=== PATIENT | male | born 1965 | race Hispanic/Latino ===

== ENCOUNTER 2017-11-26 04:33 | Inpatient (IN) | payer MEDICARE, OTHER ==
[2017-11-26] MEDS ORDERED: ACTIDOSE SORBITOL PO ONE (05:00)
[2017-11-26] MEDS ORDERED: NACL 0.9% 1000 ML 1,000 ML IV ONE ×2 (05:00→06:29)
[2017-11-26] MEDS ORDERED: NACL 0.9% 1000 ML 1,000 ML ONE (05:15)
[2017-11-26] MEDS ORDERED: ACTIDOSE-AQUA ONE (05:16)
[2017-11-26 05:50] LABS: Basophils % (Auto) 0.1 % (0.0-1.8); Lymphocytes # (Auto) 0.7 K/mm3 (1.2-5.4); Lymphocytes % (Auto) 4.2 % (13.4-35.0); Mean Corpuscular HGB Conc 36 % (32-34); Mean Corpuscular Hemoglobin 35 pg (28-32); Mean Corpuscular Volume 96 fl (84-94); Monocytes # (Auto) 2.6 K/mm3 (0.0-0.8); Monocytes % (Auto) 15.9 % (0.0-7.3); Platelet Count 344 K/mm3 (140-440); Red Blood Count 4.21 M/mm3 (3.65-5.03); Red Cell Distribution Width 12.5 % (13.2-15.2)
[2017-11-26 05:51] LABS: Bilirubin,Urine NEG (Negative); Blood,Urine SM (Negative); Color,Urine Amber (Yellow); Hyaline Casts,Urine 5 /LPF; Mucus,Urine 1+ /HPF
[2017-11-26 05:56] LABS: Amphetamine Screen,Urine PRESUMPTIVE NEGATIVE; Benzodiazepines Screen,Urine PRESUMPTIVE NEGATIVE; Cannabinoid Screen,Urine PRESUMPTIVE NEGATIVE; Cocaine Screen,Urine PRESUMPTIVE NEGATIVE; Methadone Screen,Urine PRESUMPTIVE NEGATIVE; Opiate Screen,Urine PRESUMPTIVE NEGATIVE
[2017-11-26 06:03] LABS: Hematocrit 40.4 % (35.5-45.6); Hemoglobin 14.5 gm/dl (11.8-15.2)
[2017-11-26] MEDS ORDERED: VITAMIN B-1 100 MG, FOLVITE 1 MG, INFUVITE 10 ML in NACL 0.9% 1000 ML 1,000 ML IV ONE (06:29)
[2017-11-26] MEDS ORDERED: BOOSTRIX IM ONE (06:30)
--- NOTE | 2017-11-26 06:31 | Emergency Department Report ---
ED General Adult HPI - General Chief complaint: Overdose Stated complaint: OVERDOSE Time Seen by Provider: 11/26/17 06:06 Source: EMS (ems notes not available at time of chart dictation), RN notes reviewed, old records reviewed Mode of arrival: Stretcher Limitations: Altered Mental Status, Physical Limitation - History of Present Illness Initial comments: This is a 52-year-old gentleman who is not known to this provider previously. Past medical history includes alcohol abuse, and disorganized behavior. History is primarily obtained by review of nursing notes, discussion with nurse , contact with his reported power of tax attorney, Ms. Champagne; [phone]. The patient apparently ingested an unknown amount of dog and tick flea medication, and may have also taken 2 of his old seizure medications. Purported ingestion is at/around 3:30 AM. The patient is altered and cannot describe exacerbating or relieving factors or tell me why he did this. He cannot tell me if he is homicidal or suicidal. His power of tax attorney thinks that the patient is withdrawing and she reports the patient has poor functional status at baseline. The patient is not able to tell me if he is having pain anywhere. He is unable to tell me exacerbating or relieving factors or qualitative nature of his symptoms. -: This morning Radiation: other Severity scale (0 -10): 0 Quality: other Consistency: other Improves with: other Worsens with: other Associated Symptoms: other - Related Data Home Medications Medication Instructions Recorded Confirmed Last Taken ALBUTEROL Inhaler (OR & NICU) 2 puff INHALATION Q4H PRN 12/23/13 12/23/13 Unknown [ProAir HFA Inhaler] ALPRAZolam [Alprazolam] 0.5 mg PO TID 12/23/13 12/23/13 Unknown Cyclobenzaprine [Flexeril 10 MG 10 mg PO TID 12/23/13 12/23/13 Unknown TAB] Ezogabine [Potiga] 50 mg PO TID 12/23/13 12/23/13 Unknown Lisinopril/Hydrochlorothiazide 1 tab PO DAILY 12/23/13 12/23/13 Unknown [Zestoretic 20-12.5 mg] Allergies Allergy/AdvReac Type Severity Reaction Status Date / Time No Known Allergies Allergy Unverified 12/23/13 20:39 ED Review of Systems ROS: Stated complaint: OVERDOSE Other details as noted in HPI Comment: Unobtainable due to pts medical conditions ED Past Medical Hx - Past Medical History Hx Hypertension: Yes Hx Seizures: Yes - Surgical History Past Surgical History?: No - Social History Smoking Status: Current Every Day Smoker Substance Use Type: None - Medications Home Medications: Home Medications Medication Instructions Recorded Confirmed Last Taken Type ALBUTEROL Inhaler (OR & NICU) 2 puff INHALATION Q4H PRN 12/23/13 12/23/13 Unknown History [ProAir HFA Inhaler] ALPRAZolam [Alprazolam] 0.5 mg PO TID 12/23/13 12/23/13 Unknown History Cyclobenzaprine [Flexeril 10 MG 10 mg PO TID 12/23/13 12/23/13 Unknown History TAB] Ezogabine [Potiga] 50 mg PO TID 12/23/13 12/23/13 Unknown History Lisinopril/Hydrochlorothiazide 1 tab PO DAILY 12/23/13 12/23/13 Unknown History [Zestoretic 20-12.5 mg] ED Physical Exam - General Limitations: Altered Mental Status General appearance: anxious, in distress - Head Head exam: Present: atraumatic, normocephalic - Eye Eye exam: Present: normal appearance, PERRL, EOMI - ENT ENT exam: Present: mucous membranes dry - Neck Neck exam: Present: normal inspection, full ROM. Absent: tenderness, meningismus - Respiratory Respiratory exam: Present: decreased breath sounds. Absent: respiratory distress, wheezes, rales, rhonchi, stridor - Cardiovascular Cardiovascular Exam: Present: tachycardia, normal heart sounds - GI/Abdominal GI/Abdominal exam: Present: soft. Absent: distended, tenderness, guarding, rebound, rigid, pulsatile mass - Extremities Exam Extremities exam: Present: full ROM, normal capillary refill, other (2+ pulses noted in the bilateral upper, lower extremities. Compartments soft. No long bony tenderness. The pelvis is stable.). Absent: normal inspection (there are nontender abrasions to the bilateral anterior knee), tenderness, pedal edema, joint swelling, calf tenderness - Back Exam Back exam: Absent: paraspinal tenderness, vertebral tenderness - Neurological Exam Neurological exam: Present: altered (neurologic examination is limited secondary to patient's inability to cooperate), other (the patient is moving 4 extremities. He is alert to name and location. There is no obvious facial droop. Sensation is intact to light touch.) - Psychiatric Psychiatric exam: Present: anxious - Skin Skin exam: Present: abrasion, ecchymosis ED Course Vital Signs 11/26/17 11/26/17 11/26/17 05:00 05:30 06:09 Temperature 98.8 F Pulse Rate 113 H 108 H 113 H Respiratory 24 20 20 Rate Blood Pressure 173/154 125/90 122/83 [Left] O2 Sat by Pulse 96 98 98 Oximetry - Reevaluation(s) Reevaluation #1: 11/26/17 07:27 Differential diagnosis, including but not limited to: Toxic encephalopathy, metabolic encephalopathy, pneumonia, urinary tract infection, alcohol withdrawal , suicidality, psychosis, overdose Assessment and plan: 52-year-old gentleman with known history of alcohol abuse, who is tachycardic and tremulous without a fever. His leukocytosis is appreciated as well as his tachycardia. Patient has a documented history of being quite disorganized as per his documentation in 2013, and also has a history of alcohol dependence and alcohol withdrawal. Furthermore, his power of tax attorney indicates she thinks the patient is going through alcohol withdrawal. His abnormal vital signs are most likely secondary to alcohol withdrawal. Uncertain whether or not this is a suicidal ingestion or not, and therefore the patient will be placed on a 1013 with suicide precautions. A psychiatric consultation has been requested. ciwa protocol has been ordered. Patient has already been given charcoal prior to my evaluation. Laboratory studies pending, x-ray of the chest was negative, initial EKG nondiagnostic and uninterpretable secondary to motion artifact and wanted to be reinterpreted, no noncontrast CT scan of brain is pending. Reevaluation #2: 11/26/17 07:32 Laboratory studies suggest hyponatremia, most likely secondary to beer consumption, this is probably hypovolemic hyponatremia. Reevaluation #3: 11/26/17 08:08 Elevated lactic acid is appreciated, this is likely secondary to alcohol abuse and probable withdrawal. Also has a myositis. Does not meet definition criteria for rhabdomyolysis at this time. Awaiting CT scan. Patient has received 4 mg of Ativan and is still quite agitated. He will require Haldol for acquisition of CT scan of the brain. Reevaluation #4: 11/26/17 08:38 The patient is still up and agitated, attempting to pull off monitor leads, does not follow verbal commands. He has been given Haldol, Ativan, and is still showing signs of psychomotor agitation. Phenobarbital is ordered. Because of the patient's agitation, there hasn't been a delay in acquisition of CT scan. Reevaluation #5: 11/26/17 09:17 The patient is now sleepy and protecting his airway. Ketamine as canceled. I have requested that the patient go over CT scan emergently. 11/26/17 09:27 Patient now agitated, and we will give ketamine. - Consultations Consultation #1: 11/26/17 10:20 Patient has been given numerous sedating medications, including Haldol, Ativan, ketamine. He is also received phenobarbital. In spite of this, he is still agitated, pulling leads and monitoring equipment off himself, and is clearly a fall risk. Given the patient has failed multiple sedating medications, and has been given multiple classes of medications, it is my opinion that moderate sedation in this context is too dangerous, and therefore the patient is intubated for airway protection for acquisition of appropriate diagnostics. He will be ventilated on the lung protective strategy, with early weaning as possible, and we will contact the critical-care physician transformation architect to arrange placement in to the intensive care unit. Consultation #2: 11/26/17 10:27 Case is discussed with the critical care physician on-call, Dr. Thorne, who will see the patient in consultation Consultation #3: 11/26/17 11:[address] scan of the brain, cervical spine negative for acute disease. Dr. Orlando accepted the patient to the medical service. Patient remains sedated on propofol 11/26/17 11:44 - Intubation Time Out Performed: Yes Sedative: Etomidate Mg Given: 20 Paralytic: Rocuronium Mg Given: 100 Laryngoscope: Georgie Size: 3 Assist Device Used: other (bougie) ET Tube Size: 7.5 Tube Secured Depth (cm): 23 Tube Secured Location: teeth Tube Placement Confirmation: equal breath sounds bilat, no breath sounds over epi, confirmation by capnometr Patient Tolerated Procedure: well Intubation Complications: none Additional Comments: Prior to induction, the patient is placed on a nasal cannula at 15 L/m, and towel rolls are place underneath the shoulder to align the ear to the sternal notch. After this, patient received [id number] ventilation, while receiving induction and paralysis. He does not desaturate, a Montez 3 blade is placed into the patient's oropharynx, and the epiglottis is visualized. The bougie catheters and introduced, and palpable clicks are appreciated, and the endotracheal tube is then advanced over the bougie catheter, with appropriate capnography color change, breath sounds over the chest, no breath sounds in the epigastrium, and tube placement is subsequently confirmed by video laryngoscopy. The patient tolerated the procedure well with no obvious complications. ED Medical Decision Making - Lab Data Result diagrams: 11/26/17 05:37 11/26/17 05:37 Vital Signs 11/26/17 11/26/17 11/26/17 05:00 05:30 06:09 Temperature 98.8 F Pulse Rate 113 H 108 H 113 H Respiratory 24 20 20 Rate Blood Pressure 173/154 125/90 122/83 [Left] O2 Sat by Pulse 96 98 98 Oximetry Lab Results 11/26/17 11/26/17 11/26/17 Range/Units 05:08 05:27 05:27 WBC (4.5-11.0) K/mm3 RBC (3.65-5.03) M/mm3 Hgb (11.8-15.2) gm/dl Hct (35.5-45.6) % MCV (84-94) fl MCH (28-32) pg MCHC (32-34) % RDW (13.2-15.2) % Plt Count (140-440) K/mm3 Lymph % (Auto) (13.4-35.0) % [place] % (Auto) (0.0-7.3) % Eos % (Auto) (0.0-4.3) % Baso % (Auto) (0.0-1.8) % Lymph # (1.2-5.4) K/mm3 [place] # (0.0-0.8) K/mm3 Eos # (0.0-0.4) K/mm3 Baso # (0.0-0.1) K/mm3 Seg Neutrophils % (40.0-70.0) % Seg Neutrophils # (1.8-7.7) K/mm3 POC Glucose 101 (70-105) Magnesium (1.7-2.3) mg/dL Lactate Dehydrogenase (91-180) units/L Troponin T (0.00-0.029) ng/mL Urine Color Rosalia (Yellow) Urine Turbidity Cloudy (Clear) Urine pH 5.0 (5.0-7.0) Ur Specific Spring 1.019 (1.003-1.030) Urine Protein 100 mg/dl (Negative) mg/dL Urine Glucose (UA) Neg (Negative) mg/dL Urine Ketones Tr (Negative) mg/dL Urine Blood Sm (Negative) Urine Nitrite Neg (Negative) Urine Bilirubin Neg (Negative) Urine Urobilinogen 4.0 (<2.0) mg/dL Ur Leukocyte Esterase Neg (Negative) Urine WBC (Auto) 12.0 H (0.0-6.0) /HPF Urine RBC (Auto) 5.0 (0.0-6.0) /HPF U Epithel Cells (Auto) 1.0 (0-13.0) /HPF Hyaline Casts 5 /LPF Urine Mucus 1+ /HPF Salicylates (2.8-20.0) mg/dL Urine Opiates Screen Presumptive negative Urine Methadone Screen Presumptive negative Acetaminophen (10.0-30.0) ug/mL Ur Barbiturates Screen Presumptive negative Ur Phencyclidine Scrn Presumptive negative Ur Amphetamines Screen Presumptive negative U Benzodiazepines Scrn Presumptive negative Urine Cocaine Screen Presumptive negative U Marijuana (THC) Screen Presumptive negative Drugs of Abuse Note Disclamer Plasma/Serum Alcohol (0-0.07) % 11/26/17 11/26/17 11/26/17 Range/Units 05:37 05:37 05:37 WBC (4.5-11.0) K/mm3 RBC (3.65-5.03) M/mm3 Hgb (11.8-15.2) gm/dl Hct (35.5-45.6) % MCV (84-94) fl MCH (28-32) pg MCHC (32-34) % RDW (13.2-15.2) % Plt Count (140-440) K/mm3 Lymph % (Auto) (13.4-35.0) % [place] % (Auto) (0.0-7.3) % Eos % (Auto) (0.0-4.3) % Baso % (Auto) (0.0-1.8) % Lymph # (1.2-5.4) K/mm3 [place] # (0.0-0.8) K/mm3 Eos # (0.0-0.4) K/mm3 Baso # (0.0-0.1) K/mm3 Seg Neutrophils % (40.0-70.0) % Seg Neutrophils # (1.8-7.7) K/mm3 POC Glucose (70-105) Magnesium (1.7-2.3) mg/dL Lactate Dehydrogenase (91-180) units/L Troponin T (0.00-0.029) ng/mL Urine Color (Yellow) Urine Turbidity (Clear) Urine pH (5.0-7.0) Ur Specific [place] (1.003-1.030) Urine Protein (Negative) mg/dL Urine Glucose (UA) (Negative) mg/dL Urine Ketones (Negative) mg/dL Urine Blood (Negative) Urine Nitrite (Negative) Urine Bilirubin (Negative) Urine Urobilinogen (<2.0) mg/dL Ur Leukocyte Esterase (Negative) Urine WBC (Auto) (0.0-6.0) /HPF Urine RBC (Auto) (0.0-6.0) /HPF U Epithel Cells (Auto) (0-13.0) /HPF Hyaline Casts /LPF Urine Mucus /HPF Salicylates < 0.3 L (2.8-20.0) mg/dL Urine Opiates Screen Urine Methadone Screen Acetaminophen < 5.0 L (10.0-30.0) ug/mL Ur Barbiturates Screen Ur Phencyclidine Scrn Ur Amphetamines Screen U Benzodiazepines Scrn Urine Cocaine Screen U Marijuana (THC) Screen Drugs of Abuse Note Plasma/Serum Alcohol < 0.01 (0-0.07) % 11/26/17 11/26/17 11/26/17 Range/Units 05:37 05:37 05:37 WBC 16.1 H (4.5-11.0) K/mm3 RBC 4.21 (3.65-5.03) M/mm3 Hgb 14.5 (11.8-15.2) gm/dl Hct 40.4 (35.5-45.6) % MCV 96 H (84-94) fl MCH 35 H (28-32) pg MCHC 36 H (32-34) % RDW 12.5 L (13.2-15.2) % Plt Count 344 (140-440) K/mm3 Lymph % (Auto) 4.2 L (13.4-35.0) % [place] % (Auto) 15.9 H (0.0-7.3) % Eos % (Auto) 0.0 (0.0-4.3) % Baso % (Auto) 0.1 (0.0-1.8) % Lymph # 0.7 L (1.2-5.4) K/mm3 [place] # 2.6 H (0.0-0.8) K/mm3 Eos # 0.0 (0.0-0.4) K/mm3 Baso # 0.0 (0.0-0.1) K/mm3 Seg Neutrophils % 79.8 H (40.0-70.0) % Seg Neutrophils # 12.8 H (1.8-7.7) K/mm3 POC Glucose (70-105) Magnesium (1.7-2.3) mg/dL Lactate Dehydrogenase 343 H (91-180) units/L Troponin T < 0.010 (0.00-0.029) ng/mL Urine Color (Yellow) Urine Turbidity (Clear) Urine pH (5.0-7.0) Ur Specific [place] (1.003-1.030) Urine Protein (Negative) mg/dL Urine Glucose (UA) (Negative) mg/dL Urine Ketones (Negative) mg/dL Urine Blood (Negative) Urine Nitrite (Negative) Urine Bilirubin (Negative) Urine Urobilinogen (<2.0) mg/dL Ur Leukocyte Esterase (Negative) Urine WBC (Auto) (0.0-6.0) /HPF Urine RBC (Auto) (0.0-6.0) /HPF U Epithel Cells (Auto) (0-13.0) /HPF Hyaline Casts /LPF Urine Mucus /HPF Salicylates (2.8-20.0) mg/dL Urine Opiates Screen Urine Methadone Screen Acetaminophen (10.0-30.0) ug/mL Ur Barbiturates Screen Ur Phencyclidine Scrn Ur Amphetamines Screen U Benzodiazepines Scrn Urine Cocaine Screen U Marijuana (THC) Screen Drugs of Abuse Note Plasma/Serum Alcohol (0-0.07) % 11/26/17 Range/Units 06:44 WBC (4.5-11.0) K/mm3 RBC (3.65-5.03) M/mm3 Hgb (11.8-15.2) gm/dl Hct (35.5-45.6) % MCV (84-94) fl MCH (28-32) pg MCHC (32-34) % RDW (13.2-15.2) % Plt Count (140-440) K/mm3 Lymph % (Auto) (13.4-35.0) % [place] % (Auto) (0.0-7.3) % Eos % (Auto) (0.0-4.3) % Baso % (Auto) (0.0-1.8) % Lymph # (1.2-5.4) K/mm3 [place] # (0.0-0.8) K/mm3 Eos # (0.0-0.4) K/mm3 Baso # (0.0-0.1) K/mm3 Seg Neutrophils % (40.0-70.0) % Seg Neutrophils # (1.8-7.7) K/mm3 POC Glucose (70-105) Magnesium 2.00 (1.7-2.3) mg/dL Lactate Dehydrogenase (91-180) units/L Troponin T (0.00-0.029) ng/mL Urine Color (Yellow) Urine Turbidity (Clear) Urine pH (5.0-7.0) Ur Specific [place] (1.003-1.030) Urine Protein (Negative) mg/dL Urine Glucose (UA) (Negative) mg/dL Urine Ketones (Negative) mg/dL Urine Blood (Negative) Urine Nitrite (Negative) Urine Bilirubin (Negative) Urine Urobilinogen (<2.0) mg/dL Ur Leukocyte Esterase (Negative) Urine WBC (Auto) (0.0-6.0) /HPF Urine RBC (Auto) (0.0-6.0) /HPF U Epithel Cells (Auto) (0-13.0) /HPF Hyaline Casts /LPF Urine Mucus /HPF Salicylates (2.8-20.0) mg/dL Urine Opiates Screen Urine Methadone Screen Acetaminophen (10.0-30.0) ug/mL Ur Barbiturates Screen Ur Phencyclidine Scrn Ur Amphetamines Screen U Benzodiazepines Scrn Urine Cocaine Screen U Marijuana (THC) Screen Drugs of Abuse Note Plasma/Serum Alcohol (0-0.07) % - EKG Data -: EKG Interpreted by Me EKG shows normal: sinus rhythm Rate: normal - EKG Data 11/26/17 07:30 EKG number one is not interpretable. A repeat EKG has been ordered. 11/26/17 11:45 Sinus, 96 bpm, normal axis, motion artifact, atrial enlargement, QTC prolonged, abnormal EKG, not a STEMI - Radiology Data Radiology results: report reviewed, image reviewed X-ray the chest is negative for acute disease Postintubation x-ray demonstrates appropriate placement of endotracheal tube. Critical Care Time: Yes Critical care time in (mins) excluding proc time.: 60 Critical care attestation.: If time is entered above; I have spent that time in minutes in the direct care of this critically ill patient, excluding procedure time. ED Disposition Clinical Impression: ETOH abuse, Overdose Disposition: OP ADMIT IP TO THIS HOSP Is pt being admited?: Yes Condition: Critical Referrals: PRIMARY CARE, [Primary Care Provider] - 3-5 Days
--- NOTE | 2017-11-26 06:53 | XRay Report ---
FINAL REPORT EXAM: XR CHEST 1V AP HISTORY: tachycardia, delirium, questionable aspiration TECHNIQUE: AP portable view(s) of the chest obtained. PRIORS: None. FINDINGS: No mediastinal shift. Cardiac silhouette is not enlarged. Enteric tube terminates in the upper mid abdomen. No pneumothorax, effusion, or focal pulmonary opacity identified. No acute skeletal findings. IMPRESSION: No acute pulmonary finding identified.
[2017-11-26] MEDS ORDERED: ATIVAN IV ONE (07:27)
[2017-11-26 07:30] LABS: Albumin 4.7 g/dL (3.9-5); Calcium 9.4 mg/dL (8.4-10.2)
[2017-11-26] MEDS: ATIVAN IM PRN ×2 (07:50→18:20)
[2017-11-26] MEDS ORDERED: HALDOL IM STA (08:10)
[2017-11-26] MEDS ORDERED: KETALAR IM ONE ×2 (08:56→09:26)
[2017-11-26] MEDS ORDERED: KETAMINE HCL IV ONE (09:39)
[2017-11-26] MEDS ORDERED: AMIDATE IV ONE (10:05)
[2017-11-26] MEDS ORDERED: ZEMURON IV ONE (10:05)
[2017-11-26] MEDS ORDERED: DIPRIVAN 10 MG/ML 1,000 MG/100 ML BOTTLE IV ONE (10:16)
[2017-11-26] MEDS ORDERED: ARTIFICIAL TEARS OPHTH OINT OU PRN (10:18)
[2017-11-26] MEDS ORDERED: VASELINE LIP THERAPY TP PRN (10:18)
[2017-11-26] MEDS: DIPRIVAN 10 MG/ML 1,000 MG/100 ML BOTTLE IV SCH (10:20)
--- NOTE | 2017-11-26 10:38 | XRay Report ---
AP CHEST: HISTORY: Endotracheal tube placement. The endotracheal tube terminates 5.8 cm superior to the edgar. AP view of the chest demonstrates a normal mediastinal and cardiac contour with clear lungs and normal bony and soft tissue structures. IMPRESSION: Unremarkable AP chest. Adequate endotracheal tube placement.
[2017-11-26] MEDS ORDERED: NACL 0.9% 500 ML IV SCH (11:00)
--- NOTE | 2017-11-26 11:10 | Cat Scan Report ---
CT HEAD WITHOUT CONTRAST: HISTORY: Ultra mental status. TECHNIQUE: Sequential 2.5mm CT images. COMPARISON: none. FINDINGS: Cerebral Parenchyma: Within normal limits. Cerebellum: Within normal limits. Brainstem: Within normal limits. Ventricles: Normal. Sella: Normal. Extra-axial spaces: Normal. Basal Cisterns: Normal. Intracranial Hemorrhage: None. Midline Shift: None. Calvarium: Normal. Sinuses: Mild mucosal thickening is noted throughout the ethmoid air cells bilaterally. The remaining sinuses are adequately aerated. Mastoid Air Cells: Normal. Visualized Orbits: Normal. IMPRESSION: Cranial CT scan within normal limits. Mild ethmoid sinusitis, likely chronic.
--- NOTE | 2017-11-26 11:12 | Cat Scan Report ---
CT SCAN OF THE CERVICAL SPINE: HISTORY: Altered mental status, fall, can't clear C-spine. TECHNIQUE: Contiguous 1.25 mm axial images of the cervical spine were obtained. Sagittal and coronal reformatted images. FINDINGS: There is reversal of normal cervical lordosis with advanced multilevel degenerative disc disease and facet arthropathy. No obvious fracture, malalignment or bone lesion. The central canal appears normal caliber IMPRESSION: Severe multilevel degenerative change. Reversal of the normal cervical lordosis. No obvious acute injury.
--- NOTE | 2017-11-26 11:40 | History and Physical Report ---
History of Present Illness Chief complaint: confused History of present illness: 52 YO Male with ETOH Abuse, HTN, Seizure disorder, Nicotine Dependence presents to ED for evaluation. Pt is lethargic and unable to provide history. Pt history taken from family. As per family, the patient ingested and unknown quantity of canine flea and tick medication in a suspected attempt to take his own life. EMS notified, and upon arrival the patient was fount to be confused and in distress. Pt transported to [facility] for further care and evaluation. Pt seen and evaluated in ED and found to be unable to protect his airway secondary to Acute Respiratory Failure. Pt intubated and placed on vent support. Pt also found to have sepsis, rhabdomyolysis, Acidosis, and Hyponatremia. Pt admitted to ICU. Pulmonary team consulted in ED. Past History Past Medical History: hypertension, seizures Past Surgical History: Other (Back surgery) Social history: , smoking, alcohol abuse Family history: hypertension Medications and Allergies Allergies Allergy/AdvReac Type Severity Reaction Status Date / Time No Known Allergies Allergy Unverified 12/23/13 20:39 Home Medications Medication Instructions Recorded Confirmed Last Taken Type ALBUTEROL Inhaler (OR & NICU) 2 puff INHALATION Q4H PRN 12/23/13 12/23/13 Unknown History [ProAir HFA Inhaler] ALPRAZolam [Alprazolam] 0.5 mg PO TID 12/23/13 12/23/13 Unknown History Cyclobenzaprine [Flexeril 10 MG 10 mg PO TID 12/23/13 12/23/13 Unknown History TAB] Ezogabine [Potiga] 50 mg PO TID 12/23/13 12/23/13 Unknown History Lisinopril/Hydrochlorothiazide 1 tab PO DAILY 12/23/13 12/23/13 Unknown History [Zestoretic 20-12.5 mg] Active Meds: Active Medications Hydrophilic Ointment (Vaseline Lip Therapy) 1 applic TP Q2HR PRN PRN Reason: Dry Lips Fentanyl Citrate (Fentanyl Drip Premix) 2,000 mcg in 100 mls @ 3.856 mls/hr IV TITR [facility]; Protocol Propofol (Diprivan 10 Mg/Ml) 1,000 mg in 100 mls @ 2.313 mls/hr IV TITR [facility]; Protocol Lorazepam (Ativan) 2 mg IM Q4HR PRN PRN Reason: Agitation Last Admin: 11/26/17 07:50 Dose: 2 mg Multi-Ingred Cream/Lotion/Oil/Oint (Artificial Tears Ophth Oint) 1 applic OU Q4HR PRN PRN Reason: Dry Eye(s) Sodium Chloride (Nacl 0.9% 500 Ml) 1 ml IV DIRECT [facility]IS Review of Systems ROS unobtainable: due to mental status Exam - Constitutional Vitals: Temp Pulse Resp BP Pulse Ox 98.8 F 113 H 20 122/83 98 11/26/17 05:00 11/26/17 06:09 11/26/17 06:09 11/26/17 06:09 11/26/17 06:09 General appearance: Present: mild distress - EENT Eyes: Present: PERRL, miosis ENT: hearing intact, clear oral mucosa - Neck Neck: Present: supple, normal ROM - Respiratory Respiratory: bilateral: diminished - Cardiovascular Heart Sounds: Present: S1 & S2. Absent: rub, click - Extremities Extremities: pulses symmetrical, No edema Peripheral Pulses: abnormal (cap[illary refill greater than 3.6 seconds.) - Abdominal General gastrointestinal: Present: soft, non-tender, non-distended, normal bowel sounds Male genitourinary: Present: normal - Integumentary Integumentary: Present: clear, dry, clammy, decreased turgor - Musculoskeletal Musculoskeletal: generalized weakness - Psychiatric Psychiatric: no appropriate mood/affect, no intact judgment & insight, no memory intact - Neurologic Neurologic: no focal deficits, no gait normal Results - Labs CBC & Chem 7: 11/26/17 05:37 11/26/17 05:37 Labs: Abnormal lab results 11/26/17 11/26/17 11/26/17 Range/Units 05:27 05:37 05:37 WBC (4.5-11.0) K/mm3 MCV (84-94) fl MCH (28-32) pg MCHC (32-34) % RDW (13.2-15.2) % Lymph % (Auto) (13.4-35.0) % [place] % (Auto) (0.0-7.3) % Lymph # (1.2-5.4) K/mm3 [place] # (0.0-0.8) K/mm3 Seg Neutrophils % (40.0-70.0) % Seg Neutrophils # (1.8-7.7) K/mm3 POC ABG pH (7.35-7.45) POC ABG pCO2 (35-45) POC ABG pO2 (80-105) Sodium (137-145) mmol/L Chloride (98-107) mmol/L Carbon Dioxide (22-30) mmol/L BUN (9-20) mg/dL Glucose (75-100) mg/dL Lactic Acid (0.7-2.0) mmol/L AST (5-40) units/L ALT (7-56) units/L Lactate Dehydrogenase (91-180) units/L Total Creatine Kinase (55-170) units/L Urine WBC (Auto) 12.0 H (0.0-6.0) /HPF Salicylates < 0.3 L (2.8-20.0) mg/dL Acetaminophen < 5.0 L (10.0-30.0) ug/mL 11/26/17 11/26/17 11/26/17 Range/Units 05:37 05:37 05:37 WBC 16.1 H (4.5-11.0) K/mm3 MCV 96 H (84-94) fl MCH 35 H (28-32) pg MCHC 36 H (32-34) % RDW 12.5 L (13.2-15.2) % Lymph % (Auto) 4.2 L (13.4-35.0) % [place] % (Auto) 15.9 H (0.0-7.3) % Lymph # 0.7 L (1.2-5.4) K/mm3 [place] # 2.6 H (0.0-0.8) K/mm3 Seg Neutrophils % 79.8 H (40.0-70.0) % Seg Neutrophils # 12.8 H (1.8-7.7) K/mm3 POC ABG pH (7.35-7.45) POC ABG pCO2 (35-45) POC ABG pO2 (80-105) Sodium 128 L (137-145) mmol/L Chloride 84.3 L (98-107) mmol/L Carbon Dioxide 19 L (22-30) mmol/L BUN 22 H (9-20) mg/dL Glucose 119 H (75-100) mg/dL Lactic Acid (0.7-2.0) mmol/L AST 169 H (5-40) units/L ALT 68 H (7-56) units/L Lactate Dehydrogenase 343 H (91-180) units/L Total Creatine Kinase (55-170) units/L Urine WBC (Auto) (0.0-6.0) /HPF Salicylates (2.8-20.0) mg/dL Acetaminophen (10.0-30.0) ug/mL 11/26/17 11/26/17 11/26/17 Range/Units 06:44 06:44 11:15 WBC (4.5-11.0) K/mm3 MCV (84-94) fl MCH (28-32) pg MCHC (32-34) % RDW (13.2-15.2) % Lymph % (Auto) (13.4-35.0) % [place] % (Auto) (0.0-7.3) % Lymph # (1.2-5.4) K/mm3 [place] # (0.0-0.8) K/mm3 Seg Neutrophils % (40.0-70.0) % Seg Neutrophils # (1.8-7.7) K/mm3 POC ABG pH 7.338 L (7.35-7.45) POC ABG pCO2 50.5 H (35-45) POC ABG pO2 487 H (80-105) Sodium (137-145) mmol/L Chloride (98-107) mmol/L Carbon Dioxide (22-30) mmol/L BUN (9-20) mg/dL Glucose (75-100) mg/dL Lactic Acid 4.20 H* (0.7-2.0) mmol/L AST (5-40) units/L ALT (7-56) units/L Lactate Dehydrogenase (91-180) units/L Total Creatine Kinase 3278 H (55-170) units/L Urine WBC (Auto) (0.0-6.0) /HPF Salicylates (2.8-20.0) mg/dL Acetaminophen (10.0-30.0) ug/mL Assessment and Plan - Patient Problems (1) Respiratory failure Current Visit: Yes Status: Acute Qualifiers: Chronicity: acute Respiratory failure complication: hypoxia Qualified Code(s): J96.01 - Acute respiratory failure with hypoxia Plan to address problem: supplemental oxygen, Pt intubated placed on vent support, pulmonary consulted, wean vent as tolerated, sedation holiday, SBT in am, The high probability of a clinically significant, sudden or life threatening deterioration of the [cardiac, pulmonary, renal] system(s) required my full and direct attention, intervention and personal management. The aggregate critical care time was [65] minutes. This time is in addition to time spent performing reported procedures but includes the following: [x] Data Review and interpretation [x] Patient assessment and monitoring of vital signs [x] Documentation [x] Medication orders and management (2) Sepsis Current Visit: Yes Status: Acute Qualifiers: Sepsis type: sepsis due to unspecified organism Qualified Code(s): A41.9 - Sepsis, unspecified organism Plan to address problem: IVF resuscitation therapy, blood cultures, monitor uop q shift, serial lactic acid level, urinalysis, chest x ray, Iv antibiotic therapy (3) Rhabdomyolysis Current Visit: Yes Status: Acute Qualifiers: Encounter type: initial encounter Plan to address problem: IVF resuscitation therapy, repeat ck, monitor uop q shift, (4) Hyponatremia syndrome Current Visit: Yes Status: Acute Plan to address problem: IVF resuscitation therapy, repeat bmp, supportive care, CT head (5) Overdose Current Visit: Yes Status: Acute Qualifiers: Encounter type: initial encounter Injury intent: undetermined intent Qualified Code(s): T50.904A - Poisoning by unspecified drugs, medicaments and biological substances, undetermined, initial encounter Plan to address problem: psychiatry consulted, supportive care. [address] (6) ETOH abuse Current Visit: Yes Status: Chronic Plan to address problem: CIWA protocol, thiamin, folic acid, multivitamin, supportive care. (7) Seizure Current Visit: No Status: Acute Plan to address problem: continue antiepileptic therapy as clinically indicated, Pt not taking Vimpat as outpatient. (8) DVT prophylaxis Current Visit: Yes Status: Acute Plan to address problem: SCD to BLE while in bed.
[2017-11-26] MEDS ORDERED: SODIUM CHLORIDE FLUSH SYRINGE 10 ML IV PRN (11:49)
[2017-11-26] MEDS ORDERED: NACL 0.9% 1000 ML IV ONE (11:53)
[2017-11-26] MEDS ORDERED: SODIUM BICARBONATE IV ONE ×4 (11:55→18:30)
--- NOTE | 2017-11-26 14:11 | XRay Report ---
AP ABDOMEN: HISTORY: OG tube placement. The OG tube terminates in the mid stomach. The abdominal gas pattern is unremarkable. No masses or organomegaly is identified and there is no gross evidence of free air or fluid. No significant soft tissue calcifications are noted. IMPRESSION: Unremarkable abdomen. OG tube as described.
[2017-11-26] MEDS: ZOSYN/NS 4.5GM/100ML 4.5 GM/100 ML VIAL IV SCH ×2 (14:12→22:32)
[2017-11-26] MEDS ORDERED: ZOSYN/NS 4.5GM/100ML 4.5 GM/100 ML VIAL IV ONE (14:17)
[2017-11-26] MEDS ORDERED: VANCOMYCIN 1,500 MG in NACL 0.9% 500 ML 500 ML IV ONE (14:30)
[2017-11-26] MEDS: XANAX PO SCH ×2 (16:10→19:53)
[2017-11-26] MEDS: [UNRECOGNIZED DRUG - OTHER] PO SCH ×2 (16:10→19:52)
[2017-11-26] MEDS: FLEXERIL PO SCH ×2 (16:10→19:52)
[2017-11-26] MEDS: fentaNYL DRIP Premix 2,000 MCG/100 ML BAG IV SCH (17:00)
--- NOTE | 2017-11-26 18:09 | Consultation ---
History of Present Illness Consult date: 11/26/17 Requesting physician: ZEYNEP WATERMAN History of present illness: HISTORY PER RECORDS, PATIENT UNABLE TO GIVE HISOTRY ORALLY INTUBATED AND SEDATED 52 YO Male with ETOH Abuse, HTN, Seizure disorder, Nicotine Dependence presents to ED for evaluation. Pt is lethargic and unable to provide history. Pt history taken from family. As per family, the patient ingested and unknown quantity of canine flea and tick medication in a suspected attempt to take his own life. EMS notified, and upon arrival the patient was fount to be confused and in distress. Pt transported to [facility] for further care and evaluation. Pt seen and evaluated in ED and found to be unable to protect his airway secondary to Acute Respiratory Failure. Pt intubated and placed on vent support. Pt also found to have sepsis, rhabdomyolysis, Acidosis, and Hyponatremia. Pt admitted to ICU. Pulmonary team consulted in ED. Patient was seen and examined in the ED. Sedated, orally intubated on mechanical ventilatory support. No patient ventilator dys-synchrony Vitals, labs, medications, chart and imaging reviewed. Discussed with ED physician. Information from his pediatric acute care unit nurse--she seems to think this was accidental ingestion. Over the past few years, he has become more forgetful he has disorganized behavior and poor functional status at baseline She also says that she does think he can return home with her as his care needs are becoming unmanageable. Past History Past Medical History: hypertension, seizures Past Surgical History: Other (Back surgery) Social history: (CURRENTLY ), smoking, alcohol abuse, full code Family history: hypertension Medications and Allergies Allergies Allergy/AdvReac Type Severity Reaction Status Date / Time No Known Allergies Allergy Unverified 12/23/13 20:39 Home Medications Medication Instructions Recorded Confirmed Last Taken Type ALBUTEROL Inhaler (OR & NICU) 2 puff INHALATION Q4H PRN 12/23/13 12/23/13 Unknown History [ProAir HFA Inhaler] ALPRAZolam [Alprazolam] 0.5 mg PO TID 12/23/13 12/23/13 Unknown History Cyclobenzaprine [Flexeril 10 MG 10 mg PO TID 12/23/13 12/23/13 Unknown History TAB] Ezogabine [Potiga] 50 mg PO TID 12/23/13 12/23/13 Unknown History Lisinopril/Hydrochlorothiazide 1 tab PO DAILY 12/23/13 12/23/13 Unknown History [Zestoretic 20-12.5 mg] Active Meds: Active Medications Alprazolam (Xanax) 0.5 mg PO TID [facility] Last Admin: 11/26/17 16:10 Dose: Not Given Cyclobenzaprine HCl (Flexeril) 10 mg PO TID [facility] Last Admin: 11/26/17 16:10 Dose: Not Given Hydrochlorothiazide (Hctz) 12.5 mg PO QDAY [facility] Hydrophilic Ointment (Vaseline Lip Therapy) 1 applic TP Q2HR PRN PRN Reason: Dry Lips Fentanyl Citrate (Fentanyl Drip Premix) 2,000 mcg in 100 mls @ 3.856 mls/hr IV TITR [facility]; Protocol Propofol (Diprivan 10 Mg/Ml) 1,000 mg in 100 mls @ 2.313 mls/hr IV TITR [facility]; Protocol Last Titration: 11/26/17 16:51 Dose: 20 mcg/kg/min, 9.253 mls/hr Piperacillin Sod/Tazobactam Sod (Zosyn/Ns 4.5gm/100ml) 4.5 gm in 100 mls @ 200 mls/hr IV Q8HR [facility]; Protocol Last Admin: 11/26/17 14:12 Dose: 200 mls/hr Lisinopril (Zestril) 20 mg PO QDAY [facility] Lorazepam (Ativan) 2 mg IM Q4HR PRN PRN Reason: Agitation Last Admin: 11/26/17 07:50 Dose: 2 mg Miscellaneous Medication (Ezogabine [Potiga]) 50 mg PO TID [facility] Last Admin: 11/26/17 16:10 Dose: Not Given Multi-Ingred Cream/Lotion/Oil/Oint (Artificial Tears Ophth Oint) 1 applic OU Q4HR PRN PRN Reason: Dry Eye(s) Sodium Bicarbonate (Sodium Bicarbonate) 50 meq IV ONCE ONE Stop: 11/26/17 18:31 Sodium Chloride (Nacl 0.9% 500 Ml) 1 ml IV DIRECT [facility]IS Sodium Chloride (Sodium Chloride Flush Syringe 10 Ml) 10 ml IV BID [facility] Sodium Chloride (Sodium Chloride Flush Syringe 10 Ml) 10 ml IV PRN PRN PRN Reason: LINE FLUSH Review of Systems ROS unobtainable: due to endotracheal tube, due to mental status Physical Examination Vital signs: Vital Signs Pulse Resp 117 H 17 11/26/17 04:42 11/26/17 04:42 Results - Laboratory Findings CBC and BMP: 11/26/17 05:37 11/26/17 05:37 ABG POC ABG pH 7.338 (7.35-7.45) L 11/26/17 11:15 POC ABG pCO2 50.5 (35-45) H 11/26/17 11:15 POC ABG pO2 487 (80-105) H 11/26/17 11:15 POC ABG HCO3 27.1 11/26/17 11:15 POC ABG Total CO2 29 11/26/17 11:15 POC ABG O2 Sat 100 11/26/17 11:15 Abnormal lab findings: Abnormal Labs 11/26/17 11/26/17 11/26/17 05:27 05:37 05:37 WBC MCV MCH MCHC RDW Lymph % (Auto) [place] % (Auto) Lymph # [place] # Seg Neutrophils % Seg Neutrophils # POC ABG pH POC ABG pCO2 POC ABG pO2 Sodium Chloride Carbon Dioxide BUN Glucose Lactic Acid AST ALT Lactate Dehydrogenase Total Creatine Kinase Urine WBC (Auto) 12.0 H Salicylates < 0.3 L Acetaminophen < 5.0 L 11/26/17 11/26/17 11/26/17 05:37 05:37 05:37 WBC 16.1 H MCV 96 H MCH 35 H MCHC 36 H RDW 12.5 L Lymph % (Auto) 4.2 L [place] % (Auto) 15.9 H Lymph # 0.7 L [place] # 2.6 H Seg Neutrophils % 79.8 H Seg Neutrophils # 12.8 H POC ABG pH POC ABG pCO2 POC ABG pO2 Sodium 128 L Chloride 84.3 L Carbon Dioxide 19 L BUN 22 H Glucose 119 H Lactic Acid AST 169 H ALT 68 H Lactate Dehydrogenase 343 H Total Creatine Kinase Urine WBC (Auto) Salicylates Acetaminophen 11/26/17 11/26/17 11/26/17 06:44 06:44 11:15 WBC MCV MCH MCHC RDW Lymph % (Auto) [place] % (Auto) Lymph # [place] # Seg Neutrophils % Seg Neutrophils # POC ABG pH 7.338 L POC ABG pCO2 50.5 H POC ABG pO2 487 H Sodium Chloride Carbon Dioxide BUN Glucose Lactic Acid 4.20 H* AST ALT Lactate Dehydrogenase Total Creatine Kinase 3278 H Urine WBC (Auto) Salicylates Acetaminophen - Diagnostic Findings Chest x-ray: image reviewed Assessment and Plan Acute hypoxemic/hypercapnic respiratory failure Respiratory failure Acute encephalopathy( toxic, metabolic, possible medication withdrawal, alcohol) Sepsis Rhabdomyolysis Hyponatremia syndrome Overdose Possible GIB ETOH abuse disorder Tobacco abuse disorder h/o Back pain with chronic narcotic use -Admit ICU -VAP bundle addressed -Critical care bundles addressed -Nutrition consult, hold off on any enteric feeding in view of possible GI bleeding -VTE prophylaxis -Neurology consult -Agitation/Analgesia -Empiric antibiotics -Follow cultures, then de-escalate or adjust antibiotics based on ALMAS -VTE prophylaxis -Stress ulcer prophylaxis--give therapeutic dosing of PPI. Sarah has bloody OGT output -Glycemic control -Serial BPMs, monitor hemodynamics, renal function and electrolyte profile -Check urine osmolality, serum osmolality, and urine sodium to help guide therapy -Normal saline infusion -CIWA protocol -Agree with Psych, consult. I suspect this is also early onset dementia or some behavioral disorder -Delirium prevention measures -Maintenance of sleep wake cycle -Initiate SATs and SBTs in the morning -Nicotine withdrawal precautions Discussed extensively with the RT and RN The high probability of a clinically significant, sudden or life threatening deterioration of the [neurology, pulmonary, ] system(s) required my full and direct attention, intervention and personal management. The aggregate critical care time was [65] minutes. This time is in addition to time spent performing reported procedures but includes the following: [x] Data Review and interpretation [x] Patient assessment and monitoring of vital signs [x] Documentation [x] Medication orders and management
[2017-11-26] MEDS: SODIUM CHLORIDE FLUSH SYRINGE 10 ML IV SCH (21:54)
[2017-11-27] MEDS: DIPRIVAN 10 MG/ML 1,000 MG/100 ML BOTTLE IV SCH ×3 (02:12→23:10)
--- NOTE | 2017-11-27 03:18 | XRay Report ---
FINAL REPORT PROCEDURE: XR CHEST 1V AP TECHNIQUE: Chest radiograph anteroposterior view. CPT 54674 HISTORY: follow up respiratory failure COMPARISON: No prior studies are available for comparison. FINDINGS: Heart: Normal. Mediastinum/Vessels: Normal. Lungs/Pleural space: Lungs are expanded. There are multifocal bilateral pulmonary infiltrates. There is focal atelectasis at the right lung base. There is no pleural effusion or pneumothorax.. Bony thorax: No acute osseous abnormality. Life support devices: Endotracheal tube is in the mid trachea. NG tube is in the stomach.. IMPRESSION: Heart size is normal.. Lungs are expanded. There are multifocal bilateral pulmonary infiltrates. There is focal atelectasis at the right lung base. There is no pleural effusion or pneumothorax.. Endotracheal tube is in the mid trachea. NG tube is in the stomach..
[2017-11-27] MEDS: ATIVAN IM PRN (04:55)
[2017-11-27] MEDS ORDERED: NACL 0.9% 1000 ML 1,000 ML IV ONE (05:05)
[2017-11-27] MEDS: ZOSYN/NS 4.5GM/100ML 4.5 GM/100 ML VIAL IV SCH (05:48)
[2017-11-27] MEDS: FLEXERIL PO SCH ×3 (08:11→20:40)
[2017-11-27] MEDS: XANAX PO SCH ×3 (08:11→20:30)
[2017-11-27] MEDS: [UNRECOGNIZED DRUG - OTHER] PO SCH ×2 (08:43→15:49)
[2017-11-27] MEDS ORDERED: NON-FORMULARY (Lisinopril/Hydrochlorothiazide [Zestoretic 20-12.5 Mg] 1 TAB) PO SCH (10:00)
[2017-11-27] MEDS: HCTZ PO SCH (10:19)
[2017-11-27] MEDS: SODIUM CHLORIDE FLUSH SYRINGE 10 ML IV SCH ×2 (10:19→22:40)
[2017-11-27] MEDS: ZESTRIL PO SCH (10:20)
--- NOTE | 2017-11-27 11:33 | Progress Note ---
Assessment and Plan Assessment and plan: Acute hypoxemic respiratory failure. Continue mechanical ventilation and wean ventilatory support per protocol. Pulmonary following. Sepsis. Patient meets criteria given the fever, tachycardia and AMS. Continue IV antibiotics and follow cultures. Toxic metabolic encephalopathy. Continue to treat underlying causes. ? GI Bleed. Keep NPO for now. Pt with OG tube and canister with red blood. ? trauma vs esophagitis (from ingestion) vs gastritis or varices for ETOH abuse. Start Protonix 40mg BID IV GI consult ? hx ETOH abuse. CIWA protocol Rhabdomyolysis. Continue IV fluid hydration. Monitor CK levels. Hyponatremia. Suicidal ideation/overdose. Psych evaluation once patient is medically stabilized. Continue 1013. Poison control center was consulted on admission. We'll follow with any further recommendations. Seizure disorder. continue antiepileptic therapy as clinically indicated, Pt not taking Vimpat as outpatient. DVT prophylaxis. Continue SCDs. History Interval history: 52 YO Male with ETOH Abuse, HTN, Seizure disorder, Nicotine Dependence presents to ED for evaluation. As per family, the patient ingested and unknown quantity of canine flea and tick medication in a suspected attempt to take his own life. EMS notified, and upon arrival the patient was found to be confused and in distress. Pt transported to [facility] for further care and evaluation. Pt seen and evaluated in ED and found to be unable to protect his airway secondary to Acute Respiratory Failure. Pt intubated and placed on vent support. Pt also found to have sepsis, rhabdomyolysis, Acidosis, and Hyponatremia. Patient remains intubated on mechanical ventilation. Hospitalist Physical - Constitutional Vitals: Temp Pulse Resp BP Pulse Ox 100.2 F H 96 H 15 110/65 96 11/27/17 07:20 11/27/17 10:20 11/27/17 10:15 11/27/17 10:20 11/27/17 10:15 General appearance: Present: mild distress - EENT Eyes: Present: PERRL, EOM intact ENT: hearing intact, clear oral mucosa, dentition normal - Neck Neck: Present: supple, normal ROM - Respiratory Respiratory effort: normal Respiratory: bilateral: CTA - Cardiovascular Rhythm: regular Heart Sounds: Present: S1 & S2. Absent: gallop, rub - Extremities Extremities: no ischemia, No edema, Full ROM - Abdominal General gastrointestinal: soft, non-tender, non-distended, normal bowel sounds - Integumentary Integumentary: Present: clear, warm, dry - Neurologic Neurologic: CNII-XII intact, moves all extremities Results - Labs CBC & Chem 7: 11/26/17 05:37 11/26/17 05:37 Labs: Laboratory Last Values WBC 16.1 K/mm3 (4.5-11.0) H 11/26/17 05:37 RBC 4.21 M/mm3 (3.65-5.03) 11/26/17 05:37 Hgb 14.5 gm/dl (11.8-15.2) 11/26/17 05:37 Hct 40.4 % (35.5-45.6) 11/26/17 05:37 MCV 96 fl (84-94) H 11/26/17 05:37 MCH 35 pg (28-32) H 11/26/17 05:37 MCHC 36 % (32-34) H 11/26/17 05:37 RDW 12.5 % (13.2-15.2) L 11/26/17 05:37 Plt Count 344 K/mm3 (140-440) 11/26/17 05:37 Lymph % (Auto) 4.2 % (13.4-35.0) L 11/26/17 05:37 [place] % (Auto) 15.9 % (0.0-7.3) H 11/26/17 05:37 Eos % (Auto) 0.0 % (0.0-4.3) 11/26/17 05:37 Baso % (Auto) 0.1 % (0.0-1.8) 11/26/17 05:37 Lymph # 0.7 K/mm3 (1.2-5.4) L 11/26/17 05:37 [place] # 2.6 K/mm3 (0.0-0.8) H 11/26/17 05:37 Eos # 0.0 K/mm3 (0.0-0.4) 11/26/17 05:37 Baso # 0.0 K/mm3 (0.0-0.1) 11/26/17 05:37 Seg Neutrophils % 79.8 % (40.0-70.0) H 11/26/17 05:37 Seg Neutrophils # 12.8 K/mm3 (1.8-7.7) H 11/26/17 05:37 POC ABG pH 7.360 (7.35-7.45) 11/27/17 05:26 POC ABG pCO2 47.6 (35-45) H 11/27/17 05:26 POC ABG pO2 107 (80-105) H 11/27/17 05:26 POC ABG HCO3 26.9 11/27/17 05:26 POC ABG Total CO2 28 11/27/17 05:26 POC ABG O2 Sat 98 11/27/17 05:26 POC ABG Base Excess 1 11/27/17 05:26 FiO2 40 % 11/27/17 05:26 Sodium 128 mmol/L (137-145) L 11/26/17 05:37 Potassium 4.1 mmol/L (3.6-5.0) 11/26/17 05:37 Chloride 84.3 mmol/L (98-107) L 11/26/17 05:37 Carbon Dioxide 19 mmol/L (22-30) L 11/26/17 05:37 Anion Gap 29 mmol/L 11/26/17 05:37 BUN 22 mg/dL (9-20) H 11/26/17 05:37 Creatinine 1.3 mg/dL (0.8-1.5) 11/26/17 05:37 Estimated GFR 58 ml/min 11/26/17 05:37 BUN/Creatinine Ratio 17 % 11/26/17 05:37 Glucose 119 mg/dL (75-100) H 11/26/17 05:37 POC Glucose 101 (70-105) 11/26/17 05:08 Lactic Acid 1.60 mmol/L (0.7-2.0) 11/26/17 20:25 Calcium 9.4 mg/dL (8.4-10.2) 11/26/17 05:37 Magnesium 2.00 mg/dL (1.7-2.3) 11/26/17 06:44 Total Bilirubin 1.10 mg/dL (0.1-1.2) 11/26/17 05:37 AST 169 units/L (5-40) H 11/26/17 05:37 ALT 68 units/L (7-56) H 11/26/17 05:37 Alkaline Phosphatase 89 units/L (35-129) 11/26/17 05:37 Lactate Dehydrogenase 343 units/L (91-180) H 11/26/17 05:37 Total Creatine Kinase 3278 units/L (55-170) H 11/26/17 06:44 Troponin T < 0.010 ng/mL (0.00-0.029) 11/26/17 11:29 Total Protein 7.1 g/dL (6.3-8.2) 11/26/17 05:37 Albumin 4.7 g/dL (3.9-5) 11/26/17 05:37 Albumin/Globulin Ratio 2.0 % 11/26/17 05:37 Urine Color [place] (Yellow) 11/26/17 05:27 Urine Turbidity Cloudy (Clear) 11/26/17 05:27 Urine pH 5.0 (5.0-7.0) 11/26/17 05:27 Ur Specific [place] 1.019 (1.003-1.030) 11/26/17 05:27 Urine Protein 100 mg/dl mg/dL (Negative) 11/26/17 05:27 Urine Glucose (UA) Neg mg/dL (Negative) 11/26/17 05:27 Urine Ketones Tr mg/dL (Negative) 11/26/17 05:27 Urine Blood Sm (Negative) 11/26/17 05:27 Urine Nitrite Neg (Negative) 11/26/17 05:27 Urine Bilirubin Neg (Negative) 11/26/17 05:27 Urine Urobilinogen 4.0 mg/dL (<2.0) 11/26/17 05:27 Ur Leukocyte Esterase Neg (Negative) 11/26/17 05:27 Urine WBC (Auto) 12.0 /HPF (0.0-6.0) H 11/26/17 05:27 Urine RBC (Auto) 5.0 /HPF (0.0-6.0) 11/26/17 05:27 U Epithel Cells (Auto) 1.0 /HPF (0-13.0) 11/26/17 05:27 Hyaline Casts 5 /LPF 11/26/17 05:27 Urine Mucus 1+ /HPF 11/26/17 05:27 Salicylates < 0.3 mg/dL (2.8-20.0) L 11/26/17 05:37 Urine Opiates Screen Presumptive negative 11/26/17 05:27 Urine Methadone Screen Presumptive negative 11/26/17 05:27 Acetaminophen < 5.0 ug/mL (10.0-30.0) L 11/26/17 05:37 Ur Barbiturates Screen Presumptive negative 11/26/17 05:27 Ur Phencyclidine Scrn Presumptive negative 11/26/17 05:27 Ur Amphetamines Screen Presumptive negative 11/26/17 05:27 U Benzodiazepines Scrn Presumptive negative 11/26/17 05:27 Urine Cocaine Screen Presumptive negative 11/26/17 05:27 U Marijuana (THC) Screen Presumptive negative 11/26/17 05:27 Drugs of Abuse Note Disclamer 11/26/17 05:27 Plasma/Serum Alcohol < 0.01 % (0-0.07) 11/26/17 05:37
--- NOTE | 2017-11-27 13:59 | Progress Note ---
Subjective Date of service: 11/27/17 Objective Vital Signs - 12hr 11/27/17 11/27/17 11/27/17 02:01 02:15 02:30 Temperature Pulse Rate 122 H 101 H 99 H Respiratory 32 H 16 32 H Rate Blood Pressure 100/73 108/65 109/65 O2 Sat by Pulse 96 94 Oximetry 11/27/17 11/27/17 11/27/17 02:45 03:00 03:15 Temperature Pulse Rate 96 H 96 H 96 H Respiratory 31 H 33 H 35 H Rate Blood Pressure 97/58 97/62 98/61 O2 Sat by Pulse 96 Oximetry 11/27/17 11/27/17 11/27/17 03:30 03:45 04:00 Temperature Pulse Rate 94 H 92 H 92 H Respiratory 39 H 39 H 35 H Rate Blood Pressure 95/57 88/53 87/52 O2 Sat by Pulse 100 Oximetry 11/27/17 11/27/17 11/27/17 04:15 04:30 04:45 Temperature Pulse Rate 104 H 95 H 111 H Respiratory 27 H 19 50 H Rate Blood Pressure 87/52 103/61 126/81 O2 Sat by Pulse 94 Oximetry 11/27/17 11/27/17 11/27/17 05:00 05:15 05:30 Temperature Pulse Rate 95 H 87 86 Respiratory 37 H 28 H 35 H Rate Blood Pressure 96/61 93/62 92/57 O2 Sat by Pulse 98 98 Oximetry 11/27/17 11/27/17 11/27/17 05:45 06:00 06:15 Temperature Pulse Rate 82 81 82 Respiratory 23 25 H 40 H Rate Blood Pressure 96/58 90/53 92/54 O2 Sat by Pulse 100 100 96 Oximetry 11/27/17 11/27/17 11/27/17 07:00 07:15 07:20 Temperature 100.2 F H Pulse Rate 84 82 Respiratory 36 H 16 Rate Blood Pressure 103/66 103/61 O2 Sat by Pulse 92 100 Oximetry 11/27/17 11/27/17 11/27/17 07:30 07:45 07:48 Temperature Pulse Rate 83 90 Respiratory 16 16 Rate Blood Pressure 100/61 99/61 O2 Sat by Pulse 80 L 99 Oximetry 11/27/17 11/27/17 11/27/17 07:56 08:00 08:15 Temperature Pulse Rate 110 H 100 H 101 H Respiratory 16 15 Rate Blood Pressure 105/72 105/72 108/62 O2 Sat by Pulse 92 83 L 82 L Oximetry 11/27/17 11/27/17 11/27/17 08:30 08:45 09:00 Temperature Pulse Rate 97 H 93 H 106 H Respiratory 18 16 19 Rate Blood Pressure 102/60 110/61 99/68 O2 Sat by Pulse 98 98 83 L Oximetry 11/27/17 11/27/17 11/27/17 09:15 09:30 09:45 Temperature Pulse Rate 106 H 99 H 103 H Respiratory 15 15 16 Rate Blood Pressure 120/77 117/64 114/72 O2 Sat by Pulse 94 95 93 Oximetry 11/27/17 11/27/17 11/27/17 10:00 10:15 10:20 Temperature Pulse Rate 99 H 96 H 96 H Respiratory 14 15 Rate Blood Pressure 105/62 110/65 110/65 O2 Sat by Pulse 97 96 Oximetry 11/27/17 11/27/17 11/27/17 10:30 10:45 11:00 Temperature Pulse Rate 105 H 96 H 92 H Respiratory 13 16 16 Rate Blood Pressure 96/66 100/59 101/61 O2 Sat by Pulse 93 96 96 Oximetry 11/27/17 11/27/17 11/27/17 11:15 11:30 11:45 Temperature Pulse Rate 91 H 89 90 Respiratory 16 16 15 Rate Blood Pressure 102/59 95/61 O2 Sat by Pulse 97 100 99 Oximetry 11/27/17 11/27/17 11/27/17 12:00 12:15 12:31 Temperature Pulse Rate 88 89 115 H Respiratory 15 16 12 Rate Blood Pressure 101/62 99/61 123/79 O2 Sat by Pulse 99 96 76 L Oximetry 11/27/17 11/27/17 12:40 13:38 Temperature Pulse Rate 95 H Respiratory Rate Blood Pressure 123/79 O2 Sat by Pulse 98 98 Oximetry CBC and BMP: 11/26/17 05:37 11/26/17 05:37 ABG, PT/INR, D-dimer: ABG POC ABG pH 7.360 (7.35-7.45) 11/27/17 05:26 POC ABG pCO2 47.6 (35-45) H 11/27/17 05:26 POC ABG pO2 107 (80-105) H 11/27/17 05:26 POC ABG HCO3 26.9 11/27/17 05:26 POC ABG Total CO2 28 11/27/17 05:26 POC ABG O2 Sat 98 11/27/17 05:26 Abnormal lab findings: Abnormal Labs 11/26/17 11/26/17 11/26/17 05:27 05:37 05:37 WBC MCV MCH MCHC RDW Lymph % (Auto) Moca % (Auto) Lymph # Moca # Seg Neutrophils % Seg Neutrophils # POC ABG pH POC ABG pCO2 POC ABG pO2 Sodium Chloride Carbon Dioxide BUN Glucose Lactic Acid AST ALT Lactate Dehydrogenase Total Creatine Kinase Urine WBC (Auto) 12.0 H Salicylates < 0.3 L Acetaminophen < 5.0 L 11/26/17 11/26/17 11/26/17 05:37 05:37 05:37 WBC 16.1 H MCV 96 H MCH 35 H MCHC 36 H RDW 12.5 L Lymph % (Auto) 4.2 L Moca % (Auto) 15.9 H Lymph # 0.7 L Moca # 2.6 H Seg Neutrophils % 79.8 H Seg Neutrophils # 12.8 H POC ABG pH POC ABG pCO2 POC ABG pO2 Sodium 128 L Chloride 84.3 L Carbon Dioxide 19 L BUN 22 H Glucose 119 H Lactic Acid AST 169 H ALT 68 H Lactate Dehydrogenase 343 H Total Creatine Kinase Urine WBC (Auto) Salicylates Acetaminophen 11/26/17 11/26/17 11/26/17 06:44 06:44 11:15 WBC MCV MCH MCHC RDW Lymph % (Auto) Moca % (Auto) Lymph # Moca # Seg Neutrophils % Seg Neutrophils # POC ABG pH 7.338 L POC ABG pCO2 50.5 H POC ABG pO2 487 H Sodium Chloride Carbon Dioxide BUN Glucose Lactic Acid 4.20 H* AST ALT Lactate Dehydrogenase Total Creatine Kinase 3278 H Urine WBC (Auto) Salicylates Acetaminophen 11/27/17 05:26 WBC MCV MCH MCHC RDW Lymph % (Auto) Moca % (Auto) Lymph # Moca # Seg Neutrophils % Seg Neutrophils # POC ABG pH POC ABG pCO2 47.6 H POC ABG pO2 107 H Sodium Chloride Carbon Dioxide BUN Glucose Lactic Acid AST ALT Lactate Dehydrogenase Total Creatine Kinase Urine WBC (Auto) Salicylates Acetaminophen
--- NOTE | 2017-11-27 15:26 | Gastroenterology Consultation ---
<ART CORONA - Last Filed: 11/27/17 15:52> History of Present Illness - Reason for Consult Consult date: 11/27/17 GI bleed Requesting physician: ZEYNEP WATERMAN - History of Present Illness Patient is a 52 y/o male with PMH of ETOH abuse, HTN, seizure disorder, and nicotine dependence who presented to ED for an evaluation after ingestion of unknown quantity of canine flea and tick medication in a suspected suicide attempt and was found to be confused and in distress upon admission. He is currently intubated on vent and being treated for sepsis, rhabdomyolysis, acidosis, and hyponatremia. GI has been consulted for a GI bleed after bright red blood was noted from OG tube yesterday after removal of NG tube s/p charcoal administration and intubation. This afternoon patient was resting on stretcher, alert and on vent w/o acute distress but unable to provide history. History obtained via chart review. Upon exam OG tube noted to have bilious drainage. No active signs of bleeding today per nursing. Rectal reveled brown stool. No evidence of abd pain or N/V. Past History Past Medical History: hypertension, seizures Past Surgical History: Other (Back surgery) Social history: , smoking, alcohol abuse Family history: hypertension Medications and Allergies Allergies Allergy/AdvReac Type Severity Reaction Status Date / Time No Known Allergies Allergy Unverified 12/23/13 20:39 Home Medications Medication Instructions Recorded Confirmed Last Taken Type ALBUTEROL Inhaler (OR & NICU) 2 puff INHALATION Q4H PRN 12/23/13 12/23/13 Unknown History [ProAir HFA Inhaler] ALPRAZolam [Alprazolam] 0.5 mg PO TID 12/23/13 12/23/13 Unknown History Cyclobenzaprine [Flexeril 10 MG 10 mg PO TID 12/23/13 12/23/13 Unknown History TAB] Ezogabine [Potiga] 50 mg PO TID 12/23/13 12/23/13 Unknown History Lisinopril/Hydrochlorothiazide 1 tab PO DAILY 12/23/13 12/23/13 Unknown History [Zestoretic 20-12.5 mg] Active Meds: Active Medications Alprazolam (Xanax) 0.5 mg PO TID [facility] Last Admin: 11/27/17 08:11 Dose: 0.5 mg Cyclobenzaprine HCl (Flexeril) 10 mg PO TID [facility] Last Admin: 11/27/17 08:11 Dose: Not Given Hydrochlorothiazide (Hctz) 12.5 mg PO QDAY [facility] Last Admin: 11/27/17 10:19 Dose: Not Given Hydrophilic Ointment (Vaseline Lip Therapy) 1 applic TP Q2HR PRN PRN Reason: Dry Lips Last Admin: 11/26/17 22:31 Dose: 1 applic Fentanyl Citrate (Fentanyl Drip Premix) 2,000 mcg in 100 mls @ 3.856 mls/hr IV TITR [facility]; Protocol Last Titration: 11/27/17 06:32 Dose: 4 mcg/kg/hr, 15.422 mls/hr Propofol (Diprivan 10 Mg/Ml) 1,000 mg in 100 mls @ 2.313 mls/hr IV TITR [facility]; Protocol Last Titration: 11/27/17 06:31 Dose: 30 mcg/kg/min, 13.88 mls/hr Piperacillin Sod/Tazobactam Sod (Zosyn/Ns 4.5gm/100ml) 4.5 gm in 100 mls @ 200 mls/hr IV Q8HR [facility]; Protocol Last Admin: 11/27/17 05:48 Dose: 200 mls/hr Levofloxacin/Dextrose (Levaquin 750mg/150ml) 750 mg in 150 mls @ 100 mls/hr IV Q24HR [facility]; Protocol Lisinopril (Zestril) 20 mg PO QDAY [facility] Last Admin: 11/27/17 10:20 Dose: Not Given Lorazepam (Ativan) 2 mg IM Q4HR PRN PRN Reason: Agitation Last Admin: 11/27/17 04:55 Dose: 2 mg Miscellaneous Medication (Ezogabine [Potiga]) 50 mg PO TID [facility] Last Admin: 11/27/17 08:43 Dose: Not Given Multi-Ingred Cream/Lotion/Oil/Oint (Artificial Tears Ophth Oint) 1 applic OU Q4HR PRN PRN Reason: Dry Eye(s) Pantoprazole Sodium (Protonix) 40 mg IV BID [facility] Sodium Chloride (Nacl 0.9% 500 Ml) 1 ml IV DIRECT [facility] Sodium Chloride (Sodium Chloride Flush Syringe 10 Ml) 10 ml IV BID [facility] Last Admin: 11/27/17 10:19 Dose: 10 ml Sodium Chloride (Sodium Chloride Flush Syringe 10 Ml) 10 ml IV PRN PRN PRN Reason: LINE FLUSH Review of Systems - Review of Systems ROS unobtainable: due to endotracheal tube Exam - Constitutional Vital Signs: Temp Pulse Resp BP Pulse Ox 100.2 F H 95 H 12 123/79 98 11/27/17 07:20 11/27/17 12:40 11/27/17 12:31 11/27/17 12:40 11/27/17 13:38 General appearance: no acute distress - Respiratory Respiratory: bilateral: CTA - Cardiovascular Rhythm: regular Heart Sounds: Present: S1 & S2 - Gastrointestinal General gastrointestinal: Present: soft, non-tender, non-distended, normal bowel sounds Rectal Exam: stool brown - Neurologic Neurological: other (unable to assess) - Labs CBC & Chem 7: 11/26/17 05:37 11/26/17 05:37 Lab Results: Laboratory Results - last 24 hr 11/26/17 11/26/17 11/27/17 15:10 20:25 05:26 POC ABG pH 7.360 POC ABG pCO2 47.6 H POC ABG pO2 107 H POC ABG HCO3 26.9 POC ABG Total CO2 28 POC ABG O2 Sat 98 POC ABG Base Excess 1 FiO2 40 Lactic Acid 1.90 1.60 Assessment and Plan 1.GI bleed -H/H WNL (14.5/40.4) -continue to monitor H/H and transfuse as needed -bright red blood noted from OG tube yesterday s/p removal of NG tube and intubation- OG tube now with bilious drainage with no active signs of bleeding ( rectal revealed brown stool) -etiology- likely 2/2 trauma -no recommendations for EGD at this time unless overt bleeding develops -continue PPI and supportive care 2.elevated LFTs -AST 169, ALT 68 -etiology- most likely 2/2 alcoholic hepatitis -recommend alcohol cessation -further workup/evaluation as outpatient -will sign off, please call if needed 3.acute hypoxemic respiratoruy failure 4.sepsis 5.toxic metabolic encephalopathy 6.rhabdomyolysis 7.hx of ETOH abuse 8.suicidal ideation/overdose- currently 1013 with psych consult pending 9.seizure disorder <DESTINEE BURROUGHS - Last Filed: 11/27/17 16:00> Medications and Allergies Active Meds: Active Medications Alprazolam (Xanax) 0.5 mg PO TID [facility] Last Admin: 11/27/17 15:51 Dose: Not Given Cyclobenzaprine HCl (Flexeril) 10 mg PO TID [facility] Last Admin: 11/27/17 15:50 Dose: Not Given Hydrochlorothiazide (Hctz) 12.5 mg PO QDAY [facility] Last Admin: 11/27/17 10:19 Dose: Not Given Hydrophilic Ointment (Vaseline Lip Therapy) 1 applic TP Q2HR PRN PRN Reason: Dry Lips Last Admin: 11/26/17 22:31 Dose: 1 applic Fentanyl Citrate (Fentanyl Drip Premix) 2,000 mcg in 100 mls @ 3.856 mls/hr IV TITR [facility]; Protocol Last Titration: 11/27/17 06:32 Dose: 4 mcg/kg/hr, 15.422 mls/hr Propofol (Diprivan 10 Mg/Ml) 1,000 mg in 100 mls @ 2.313 mls/hr IV TITR [facility]; Protocol Last Titration: 11/27/17 06:31 Dose: 30 mcg/kg/min, 13.88 mls/hr Piperacillin Sod/Tazobactam Sod (Zosyn/Ns 4.5gm/100ml) 4.5 gm in 100 mls @ 200 mls/hr IV Q8HR [facility]; Protocol Last Admin: 11/27/17 05:48 Dose: 200 mls/hr Levofloxacin/Dextrose (Levaquin 750mg/150ml) 750 mg in 150 mls @ 100 mls/hr IV Q24HR [facility]; Protocol Lisinopril (Zestril) 20 mg PO QDAY [facility] Last Admin: 11/27/17 10:20 Dose: Not Given Lorazepam (Ativan) 2 mg IM Q4HR PRN PRN Reason: Agitation Last Admin: 11/27/17 04:55 Dose: 2 mg Miscellaneous Medication (Ezogabine [Potiga]) 50 mg PO TID [facility] Last Admin: 11/27/17 15:49 Dose: Not Given Multi-Ingred Cream/Lotion/Oil/Oint (Artificial Tears Ophth Oint) 1 applic OU Q4HR PRN PRN Reason: Dry Eye(s) Pantoprazole Sodium (Protonix) 40 mg IV BID [facility] Sodium Chloride (Nacl 0.9% 500 Ml) 1 ml IV DIRECT [facility] Sodium Chloride (Sodium Chloride Flush Syringe 10 Ml) 10 ml IV BID [facility] Last Admin: 11/27/17 10:19 Dose: 10 ml Sodium Chloride (Sodium Chloride Flush Syringe 10 Ml) 10 ml IV PRN PRN PRN Reason: LINE FLUSH Exam - Constitutional Vital Signs: Temp Pulse Resp BP Pulse Ox 100.2 F H 95 H 12 123/79 98 11/27/17 07:20 11/27/17 12:40 11/27/17 12:31 11/27/17 12:40 11/27/17 13:38 - Labs CBC & Chem 7: 11/26/17 05:37 11/26/17 05:37 Lab Results: Laboratory Results - last 24 hr 11/26/17 11/27/17 20:25 05:26 POC ABG pH 7.360 POC ABG pCO2 47.6 H POC ABG pO2 107 H POC ABG HCO3 26.9 POC ABG Total CO2 28 POC ABG O2 Sat 98 POC ABG Base Excess 1 FiO2 40 Lactic Acid 1.60 Assessment and Plan Pt seen and examined. Blood in canister most c/w trauma from NG placement x 2. No evidence of caustic ingestions. Horrible dentition, but normal oral mucosa. Will sign off.
--- NOTE | 2017-11-27 15:43 | Consultation ---
History of Present Illness - Reason for Consult Consult date: 11/27/17 Reason for consult: Initial Psychiatric Evaluation - Chief Complaint Chief complaint: confused - History of Present Psychiatric Illness Patient is a 52-year-old gentleman who is not known to this provider previously. Past medical history includes alcohol abuse, and disorganized behavior. Currently, patient is intubated. Provider unable to assess. Provider spoke with Dr. Smith, he verbalizes that patient is very disorganized and unable to care for himself. Medications and Allergies Allergies Allergy/AdvReac Type Severity Reaction Status Date / Time No Known Allergies Allergy Unverified 12/23/13 20:39 Home Medications Medication Instructions Recorded Confirmed Last Taken Type ALBUTEROL Inhaler (OR & NICU) 2 puff INHALATION Q4H PRN 12/23/13 12/23/13 Unknown History [ProAir HFA Inhaler] ALPRAZolam [Alprazolam] 0.5 mg PO TID 12/23/13 12/23/13 Unknown History Cyclobenzaprine [Flexeril 10 MG 10 mg PO TID 12/23/13 12/23/13 Unknown History TAB] Ezogabine [Potiga] 50 mg PO TID 12/23/13 12/23/13 Unknown History Lisinopril/Hydrochlorothiazide 1 tab PO DAILY 12/23/13 12/23/13 Unknown History [Zestoretic 20-12.5 mg] Active Meds: Active Medications Alprazolam (Xanax) 0.5 mg PO TID [facility] Last Admin: 11/27/17 08:11 Dose: 0.5 mg Cyclobenzaprine HCl (Flexeril) 10 mg PO TID [facility] Last Admin: 11/27/17 08:11 Dose: Not Given Hydrochlorothiazide (Hctz) 12.5 mg PO QDAY [facility] Last Admin: 11/27/17 10:19 Dose: Not Given Hydrophilic Ointment (Vaseline Lip Therapy) 1 applic TP Q2HR PRN PRN Reason: Dry Lips Last Admin: 11/26/17 22:31 Dose: 1 applic Fentanyl Citrate (Fentanyl Drip Premix) 2,000 mcg in 100 mls @ 3.856 mls/hr IV TITR [facility]; Protocol Last Titration: 11/27/17 06:32 Dose: 4 mcg/kg/hr, 15.422 mls/hr Propofol (Diprivan 10 Mg/Ml) 1,000 mg in 100 mls @ 2.313 mls/hr IV TITR [facility]; Protocol Last Titration: 11/27/17 06:31 Dose: 30 mcg/kg/min, 13.88 mls/hr Piperacillin Sod/Tazobactam Sod (Zosyn/Ns 4.5gm/100ml) 4.5 gm in 100 mls @ 200 mls/hr IV Q8HR [facility]; Protocol Last Admin: 11/27/17 05:48 Dose: 200 mls/hr Levofloxacin/Dextrose (Levaquin 750mg/150ml) 750 mg in 150 mls @ 100 mls/hr IV Q24HR [facility]; Protocol Lisinopril (Zestril) 20 mg PO QDAY [facility] Last Admin: 11/27/17 10:20 Dose: Not Given Lorazepam (Ativan) 2 mg IM Q4HR PRN PRN Reason: Agitation Last Admin: 11/27/17 04:55 Dose: 2 mg Miscellaneous Medication (Ezogabine [Potiga]) 50 mg PO TID [facility] Last Admin: 11/27/17 08:43 Dose: Not Given Multi-Ingred Cream/Lotion/Oil/Oint (Artificial Tears Ophth Oint) 1 applic OU Q4HR PRN PRN Reason: Dry Eye(s) Pantoprazole Sodium (Protonix) 40 mg IV BID [facility] Sodium Chloride (Nacl 0.9% 500 Ml) 1 ml IV DIRECT [facility] Sodium Chloride (Sodium Chloride Flush Syringe 10 Ml) 10 ml IV BID [facility] Last Admin: 11/27/17 10:19 Dose: 10 ml Sodium Chloride (Sodium Chloride Flush Syringe 10 Ml) 10 ml IV PRN PRN PRN Reason: LINE FLUSH Mental Status Exam - Vital signs Last Vital Signs Temp 100.2 F H 11/27/17 07:20 Pulse 95 H 11/27/17 12:40 Resp 12 11/27/17 12:31 BP 123/79 11/27/17 12:40 Pulse Ox 98 11/27/17 13:38 - Exam Narrative exam: Mental Status Exam: Provider unable to assess mental status exam due to patient 's condition. Results Result Diagrams: 11/26/17 05:37 11/26/17 05:37 Abnormal lab results 11/27/17 Range/Units 05:26 POC ABG pCO2 47.6 H (35-45) POC ABG pO2 107 H (80-105) All other labs normal. Assessment and Plan Assessment and plan: Impression: Patient is a 52 year old male who presents to the emergency room for alcohol abuse and disorganized behavior. Currently, patient is intubated. Provider unable to assess. Recommendation/Plan: 1. Will reasses once patient is extubated. 2. telephone services sales representative made aware that patient is unable to care for himself and may need placement.
[2017-11-27] MEDS ORDERED: TYLENOL PR PRN (18:05)
[2017-11-27] MEDS: fentaNYL DRIP Premix 2,000 MCG/100 ML BAG IV SCH (18:28)
[2017-11-27 19:51] LABS: Bacteria,Urine 1+ /HPF (Negative); Bilirubin,Urine NEG (Negative); Blood,Urine SM (Negative); Color,Urine Yellow (Yellow); Mucus,Urine FEW /HPF; Urobilinogen,Urine < 2.0 mg/dL (<2.0)
[2017-11-27] MEDS: PROTONIX IV SCH (22:05)
[2017-11-28] MEDS: ZOSYN/NS 4.5GM/100ML 4.5 GM/100 ML VIAL IV SCH ×5 (00:15→23:31)
[2017-11-28] MEDS: fentaNYL DRIP Premix 2,000 MCG/100 ML BAG IV SCH ×2 (00:19→17:40)
--- NOTE | 2017-11-28 04:30 | XRay Report ---
FINAL REPORT EXAM: XR CHEST 1V AP HISTORY: follow up respiratory failure TECHNIQUE: AP portable view(s) of the chest obtained. PRIORS: 11/27/2017 FINDINGS: Endotracheal tube tip projects about 5 centimeters above the edgar. Enteric tube terminates in the upper central abdomen with distal side port just below the gastroesophageal junction. No mediastinal shift. Cardiac silhouette is not enlarged. No pneumothorax, effusion, or focal pulmonary opacity identified. No acute skeletal findings. IMPRESSION: Satisfactory appearance of patient's support apparatus without pneumothorax.
[2017-11-28 05:30] LABS: Basophils % (Auto) 0.2 % (0.0-1.8); Eosinophils % (Auto) 0.2 % (0.0-4.3); Hematocrit 34.4 % (35.5-45.6); Hemoglobin 11.9 gm/dl (11.8-15.2); Lymphocytes # (Auto) 1.1 K/mm3 (1.2-5.4); Lymphocytes % (Auto) 11.7 % (13.4-35.0); Mean Corpuscular HGB Conc 35 % (32-34); Mean Corpuscular Hemoglobin 35 pg (28-32); Mean Corpuscular Volume 100 fl (84-94); Monocytes % (Auto) 10.7 % (0.0-7.3); Platelet Count 229 K/mm3 (140-440); Red Blood Count 3.44 M/mm3 (3.65-5.03); Red Cell Distribution Width 13.1 % (13.2-15.2)
[2017-11-28 06:06] LABS: BUN/Creatinine Ratio 10; Blood Urea Nitrogen 6 mg/dL (9-20); Calcium 7.7 mg/dL (8.4-10.2); Hemolysis Index 4
--- NOTE | 2017-11-28 07:41 | Progress Note ---
<ZEYNEP WATERMAN R - Last Filed: 11/28/17 11:02> Assessment and Plan Assessment and plan: I saw and evaluated the patient. I agree with the findings and the plan of care as documented in the Nurse Practitioner's~note, with the following corrections and additions. Hospitalist Physical - Constitutional Vitals: Temp Pulse Resp BP Pulse Ox 97.8 F 101 H 14 99/52 96 11/28/17 08:15 11/28/17 09:10 11/27/17 22:00 11/28/17 09:10 11/28/17 08:37 Results - Labs CBC & Chem 7: 11/28/17 04:53 11/28/17 04:53 Labs: Laboratory Last Values WBC 9.8 K/mm3 (4.5-11.0) 11/28/17 04:53 RBC 3.44 M/mm3 (3.65-5.03) L 11/28/17 04:53 Hgb 11.9 gm/dl (11.8-15.2) 11/28/17 04:53 Hct 34.4 % (35.5-45.6) L D 11/28/17 04:53 MCV 100 fl (84-94) H 11/28/17 04:53 MCH 35 pg (28-32) H 11/28/17 04:53 MCHC 35 % (32-34) H 11/28/17 04:53 RDW 13.1 % (13.2-15.2) L 11/28/17 04:53 Plt Count 229 K/mm3 (140-440) 11/28/17 04:53 Lymph % (Auto) 11.7 % (13.4-35.0) L 11/28/17 04:53 [place] % (Auto) 10.7 % (0.0-7.3) H 11/28/17 04:53 Eos % (Auto) 0.2 % (0.0-4.3) 11/28/17 04:53 Baso % (Auto) 0.2 % (0.0-1.8) 11/28/17 04:53 Lymph # 1.1 K/mm3 (1.2-5.4) L 11/28/17 04:53 [place] # 1.0 K/mm3 (0.0-0.8) H 11/28/17 04:53 Eos # 0.0 K/mm3 (0.0-0.4) 11/28/17 04:53 Baso # 0.0 K/mm3 (0.0-0.1) 11/28/17 04:53 Seg Neutrophils % 77.2 % (40.0-70.0) H 11/28/17 04:53 Seg Neutrophils # 7.6 K/mm3 (1.8-7.7) 11/28/17 04:53 POC ABG pH 7.405 (7.35-7.45) 11/28/17 06:22 POC ABG pCO2 45.7 (35-45) H 11/28/17 06:22 POC ABG pO2 72 (80-105) L 11/28/17 06:22 POC ABG HCO3 28.6 11/28/17 06:22 POC ABG Total CO2 30 11/28/17 06:22 POC ABG O2 Sat 94 11/28/17 06:22 POC ABG Base Excess 4 11/28/17 06:22 FiO2 40 % 11/28/17 06:22 Sodium 140 mmol/L (137-145) D 11/28/17 04:53 Potassium 3.2 mmol/L (3.6-5.0) L D 11/28/17 04:53 Chloride 95.4 mmol/L (98-107) L 11/28/17 04:53 Carbon Dioxide 28 mmol/L (22-30) D 11/28/17 04:53 Anion Gap 20 mmol/L 11/28/17 04:53 BUN 6 mg/dL (9-20) L 11/28/17 04:53 Creatinine 0.6 mg/dL (0.8-1.5) L D 11/28/17 04:53 Estimated GFR > 60 ml/min 11/28/17 04:53 BUN/Creatinine Ratio 10 % 11/28/17 04:53 Glucose 65 mg/dL (75-100) L 11/28/17 04:53 POC Glucose 101 (70-105) 11/26/17 05:08 Lactic Acid 1.60 mmol/L (0.7-2.0) 11/26/17 20:25 Calcium 7.7 mg/dL (8.4-10.2) L D 11/28/17 04:53 Magnesium 2.00 mg/dL (1.7-2.3) 11/26/17 06:44 Total Bilirubin 1.10 mg/dL (0.1-1.2) 11/26/17 05:37 AST 169 units/L (5-40) H 11/26/17 05:37 ALT 68 units/L (7-56) H 11/26/17 05:37 Alkaline Phosphatase 89 units/L (35-129) 11/26/17 05:37 Lactate Dehydrogenase 343 units/L (91-180) H 11/26/17 05:37 Total Creatine Kinase 3278 units/L (55-170) H 11/26/17 06:44 Troponin T < 0.010 ng/mL (0.00-0.029) 11/26/17 11:29 Total Protein 7.1 g/dL (6.3-8.2) 11/26/17 05:37 Albumin 4.7 g/dL (3.9-5) 11/26/17 05:37 Albumin/Globulin Ratio 2.0 % 11/26/17 05:37 Urine Color Yellow (Yellow) 11/27/17 18:03 Urine Turbidity Slightly-cloudy (Clear) 11/27/17 18:03 Urine pH 5.0 (5.0-7.0) 11/27/17 18:03 Ur Specific [place] 1.019 (1.003-1.030) 11/27/17 18:03 Urine Protein 30 mg/dl mg/dL (Negative) 11/27/17 18:03 Urine Glucose (UA) Neg mg/dL (Negative) 11/27/17 18:03 Urine Ketones 20 mg/dL (Negative) 11/27/17 18:03 Urine Blood Sm (Negative) 11/27/17 18:03 Urine Nitrite Neg (Negative) 11/27/17 18:03 Urine Bilirubin Neg (Negative) 11/27/17 18:03 Urine Urobilinogen < 2.0 mg/dL (<2.0) 11/27/17 18:03 Ur Leukocyte Esterase Sm (Negative) 11/27/17 18:03 Urine WBC (Auto) 13.0 /HPF (0.0-6.0) H 11/27/17 18:03 Urine RBC (Auto) 15.0 /HPF (0.0-6.0) 11/27/17 18:03 U Epithel Cells (Auto) 1.0 /HPF (0-13.0) 11/26/17 05:27 Urine Bacteria (Auto) 1+ /HPF (Negative) 11/27/17 18:03 Hyaline Casts 5 /LPF 11/26/17 05:27 Urine Mucus Few /HPF 11/27/17 18:03 Salicylates < 0.3 mg/dL (2.8-20.0) L 11/26/17 05:37 Urine Opiates Screen Presumptive negative 11/26/17 05:27 Urine Methadone Screen Presumptive negative 11/26/17 05:27 Acetaminophen < 5.0 ug/mL (10.0-30.0) L 11/26/17 05:37 Ur Barbiturates Screen Presumptive negative 11/26/17 05:27 Ur Phencyclidine Scrn Presumptive negative 11/26/17 05:27 Ur Amphetamines Screen Presumptive negative 11/26/17 05:27 U Benzodiazepines Scrn Presumptive negative 11/26/17 05:27 Urine Cocaine Screen Presumptive negative 11/26/17 05:27 U Marijuana (THC) Screen Presumptive negative 11/26/17 05:27 Drugs of Abuse Note Disclamer 11/26/17 05:27 Plasma/Serum Alcohol < 0.01 % (0-0.07) 11/26/17 05:37 <ALIA DEE - Last Filed: 11/28/17 14:53> Assessment and Plan Assessment and plan: 1. Acute hypoxemic respiratory failure. Continue mechanical ventilation and wean ventilatory support per protocol. Pulmonary following ABG noted Nebs tr PRN 2. Sepsis (possibly 2nd to bilateral pulm infiltrate(per CXR) Fever improving, VS stable Continue IV antibiotics Cultures pending. 3. Toxic metabolic encephalopathy. Continue to treat underlying causes. 4. Possible GI Bleed vrs traumatic esophagitis (bleeding resolved) Keep NPO for now. Pt with OG tube and canister with red blood. (from ingestion) vs gastritis or varices for ETOH abuse. Start Protonix 40mg BID IV GI consult 5. hx ETOH abuse. Continue CIWA protocol with Ativan 5. Rhabdomyolysis. Continue IV fluid hydration. Monitor CK levels. 6. Hyponatremia (resolved) 7. Hypokalemia (K+ 3.2) Potassium replacement initiated Recheck potassium level 8. Suicidal ideation/overdose. Pending Psych evaluation once medically stabilized/ Continue 1013. Poison control center was consulted on admission. We'll follow with any further recommendations. 9. Seizure disorder Continue antiepileptic therapy as clinically indicated, Pt not taking Vimpat as outpatient. DVT prophylaxis. Continue SCDs Supportive care Continue to follow progress History Interval history: Pt is a 52 y/o male with h/o ETOH, s/p suicidal attempt, pt is awake, reply that he is doing ok, no acute distress, somewhat combative, soft wrist restraint in place. Hospitalist Physical - Constitutional Vitals: Temp Pulse Resp BP Pulse Ox 102.1 F H 102 H 14 113/57 95 11/27/17 17:00 11/28/17 05:57 11/27/17 22:00 11/28/17 05:57 11/28/17 05:57 General appearance: Present: mild distress - EENT Eyes: Present: EOM intact - Neck Neck: Present: normal ROM - Respiratory Respiratory: bilateral: rhonchi - Cardiovascular Rhythm: regular - Extremities Extremities: pulses symmetrical, No edema Peripheral Pulses: within normal limits - Integumentary Integumentary: Present: warm - Psychiatric Psychiatric: agitated - Neurologic Neurologic: moves all extremities Results - Labs CBC & Chem 7: 11/28/17 04:53 11/28/17 04:53 Labs: Laboratory Last Values WBC 9.8 K/mm3 (4.5-11.0) 11/28/17 04:53 RBC 3.44 M/mm3 (3.65-5.03) L 11/28/17 04:53 Hgb 11.9 gm/dl (11.8-15.2) 11/28/17 04:53 Hct 34.4 % (35.5-45.6) L D 11/28/17 04:53 MCV 100 fl (84-94) H 11/28/17 04:53 MCH 35 pg (28-32) H 11/28/17 04:53 MCHC 35 % (32-34) H 11/28/17 04:53 RDW 13.1 % (13.2-15.2) L 11/28/17 04:53 Plt Count 229 K/mm3 (140-440) 11/28/17 04:53 Lymph % (Auto) 11.7 % (13.4-35.0) L 11/28/17 04:53 [place] % (Auto) 10.7 % (0.0-7.3) H 11/28/17 04:53 Eos % (Auto) 0.2 % (0.0-4.3) 11/28/17 04:53 Baso % (Auto) 0.2 % (0.0-1.8) 11/28/17 04:53 Lymph # 1.1 K/mm3 (1.2-5.4) L 11/28/17 04:53 [place] # 1.0 K/mm3 (0.0-0.8) H 11/28/17 04:53 Eos # 0.0 K/mm3 (0.0-0.4) 11/28/17 04:53 Baso # 0.0 K/mm3 (0.0-0.1) 11/28/17 04:53 Seg Neutrophils % 77.2 % (40.0-70.0) H 11/28/17 04:53 Seg Neutrophils # 7.6 K/mm3 (1.8-7.7) 11/28/17 04:53 POC ABG pH 7.405 (7.35-7.45) 11/28/17 06:22 POC ABG pCO2 45.7 (35-45) H 11/28/17 06:22 POC ABG pO2 72 (80-105) L 11/28/17 06:22 POC ABG HCO3 28.6 11/28/17 06:22 POC ABG Total CO2 30 11/28/17 06:22 POC ABG O2 Sat 94 11/28/17 06:22 POC ABG Base Excess 4 11/28/17 06:22 FiO2 40 % 11/28/17 06:22 Sodium 140 mmol/L (137-145) D 11/28/17 04:53 Potassium 3.2 mmol/L (3.6-5.0) L D 11/28/17 04:53 Chloride 95.4 mmol/L (98-107) L 11/28/17 04:53 Carbon Dioxide 28 mmol/L (22-30) D 11/28/17 04:53 Anion Gap 20 mmol/L 11/28/17 04:53 BUN 6 mg/dL (9-20) L 11/28/17 04:53 Creatinine 0.6 mg/dL (0.8-1.5) L D 11/28/17 04:53 Estimated GFR > 60 ml/min 11/28/17 04:53 BUN/Creatinine Ratio 10 % 11/28/17 04:53 Glucose 65 mg/dL (75-100) L 11/28/17 04:53 POC Glucose 101 (70-105) 11/26/17 05:08 Lactic Acid 1.60 mmol/L (0.7-2.0) 11/26/17 20:25 Calcium 7.7 mg/dL (8.4-10.2) L D 11/28/17 04:53 Magnesium 2.00 mg/dL (1.7-2.3) 11/26/17 06:44 Total Bilirubin 1.10 mg/dL (0.1-1.2) 11/26/17 05:37 AST 169 units/L (5-40) H 11/26/17 05:37 ALT 68 units/L (7-56) H 11/26/17 05:37 Alkaline Phosphatase 89 units/L (35-129) 11/26/17 05:37 Lactate Dehydrogenase 343 units/L (91-180) H 11/26/17 05:37 Total Creatine Kinase 3278 units/L (55-170) H 11/26/17 06:44 Troponin T < 0.010 ng/mL (0.00-0.029) 11/26/17 11:29 Total Protein 7.1 g/dL (6.3-8.2) 11/26/17 05:37 Albumin 4.7 g/dL (3.9-5) 11/26/17 05:37 Albumin/Globulin Ratio 2.0 % 11/26/17 05:37 Urine Color Yellow (Yellow) 11/27/17 18:03 Urine Turbidity Slightly-cloudy (Clear) 11/27/17 18:03 Urine pH 5.0 (5.0-7.0) 11/27/17 18:03 Ur Specific [place] 1.019 (1.003-1.030) 11/27/17 18:03 Urine Protein 30 mg/dl mg/dL (Negative) 11/27/17 18:03 Urine Glucose (UA) Neg mg/dL (Negative) 11/27/17 18:03 Urine Ketones 20 mg/dL (Negative) 11/27/17 18:03 Urine Blood Sm (Negative) 11/27/17 18:03 Urine Nitrite Neg (Negative) 11/27/17 18:03 Urine Bilirubin Neg (Negative) 11/27/17 18:03 Urine Urobilinogen < 2.0 mg/dL (<2.0) 11/27/17 18:03 Ur Leukocyte Esterase Sm (Negative) 11/27/17 18:03 Urine WBC (Auto) 13.0 /HPF (0.0-6.0) H 11/27/17 18:03 Urine RBC (Auto) 15.0 /HPF (0.0-6.0) 11/27/17 18:03 U Epithel Cells (Auto) 1.0 /HPF (0-13.0) 11/26/17 05:27 Urine Bacteria (Auto) 1+ /HPF (Negative) 11/27/17 18:03 Hyaline Casts 5 /LPF 11/26/17 05:27 Urine Mucus Few /HPF 11/27/17 18:03 Salicylates < 0.3 mg/dL (2.8-20.0) L 11/26/17 05:37 Urine Opiates Screen Presumptive negative 11/26/17 05:27 Urine Methadone Screen Presumptive negative 11/26/17 05:27 Acetaminophen < 5.0 ug/mL (10.0-30.0) L 11/26/17 05:37 Ur Barbiturates Screen Presumptive negative 11/26/17 05:27 Ur Phencyclidine Scrn Presumptive negative 11/26/17 05:27 Ur Amphetamines Screen Presumptive negative 11/26/17 05:27 U Benzodiazepines Scrn Presumptive negative 11/26/17 05:27 Urine Cocaine Screen Presumptive negative 11/26/17 05:27 U Marijuana (THC) Screen Presumptive negative 11/26/17 05:27 Drugs of Abuse Note Disclamer 11/26/17 05:27 Plasma/Serum Alcohol < 0.01 % (0-0.07) 11/26/17 05:37
[2017-11-28] MEDS ORDERED: SUBLIMAZE IV PRN (08:35)
[2017-11-28] MEDS ORDERED: ATIVAN IV PRN (09:00)
[2017-11-28] MEDS: LEVAQUIN 750MG/150ML 750 MG/150 ML BAG IV SCH (09:06)
[2017-11-28] MEDS: XANAX PO SCH ×3 (09:09→23:12)
[2017-11-28] MEDS: HCTZ PO SCH (09:09)
[2017-11-28] MEDS: FLEXERIL PO SCH ×3 (09:09→23:16)
[2017-11-28] MEDS: ZESTRIL PO SCH (09:10)
[2017-11-28] MEDS: PROTONIX IV SCH ×2 (09:11→23:08)
[2017-11-28] MEDS: ATIVAN IV PRN ×3 (09:13→19:06)
--- NOTE | 2017-11-28 11:26 | Progress Note ---
Assessment and Plan Acute hypoxemic/hypercapnic respiratory failure Respiratory failure Acute encephalopathy( toxic, metabolic, possible medication withdrawal, alcohol) Sepsis Rhabdomyolysis Hyponatremia syndrome Overdose Possible GIB ETOH abuse disorder Tobacco abuse disorder h/o Back pain with chronic narcotic use - increased seroquel to 250 mg BID to spare benzodiazepines - begin keppra for seizures as home meds not available - replaced potassium - add DVT prophylaxis - reduce set rate to 12/min - add prn albuterol - continue empiric AB's but get CRP level to aid clinical de-escalation - VAP bundle addressed - Critical care bundles addressed - Nutrition consult placed, hold off on any enteric feeding in view of possible GI bleeding - Neurology consult placed - continue Agitation/Analgesia management - Follow cultures, then de-escalate or adjust antibiotics based on ALMAS - Stress ulcer prophylaxis--give therapeutic dosing of PPI and follow GI recommendations post evaluation - continue Glycemic control with SSI - continue CIWA protocol - follow psych consult - continue Delirium prevention measures - maintenance of sleep wake cycle - resume SATs and SBTs in the morning - continue Nicotine withdrawal precautions - continue other care per attending / other consultants The high probability of a clinically significant, sudden or life threatening deterioration of the [neurology, pulmonary, ] system(s) required my full and direct attention, intervention and personal management. The aggregate critical care time was [35] minutes. This time is in addition to time spent performing reported procedures but includes the following: [x] Data Review and interpretation [x] Patient assessment and monitoring of vital signs [x] Documentation [x] Medication orders and management Subjective Date of service: 11/28/17 Principal diagnosis: Acute Hypercapnic Hypoxemic Resp Failure; Sepsis; Acute Encephalopathy Interval history: Patient is seen today for: Acute Hypercapnic Hypoxemic Resp Failure; Sepsis; Acute Encephalopathy Seen and examined at bedside; 24hour events reviewed; nursing and respiratory care staff consulted; no adverse overnight events reported to me; remains on MVS : agitated during sedation holidays and unable to wean; no gross seizures; no emesis or overt aspiration Objective Vital Signs - 12hr 11/28/17 11/28/17 11/28/17 01:13 05:57 08:15 Temperature 97.8 F Pulse Rate 97 H 102 H Blood Pressure 84/40 113/57 O2 Sat by Pulse 97 95 Oximetry 11/28/17 11/28/17 08:37 09:10 Temperature Pulse Rate 101 H 101 H Blood Pressure 118/62 99/52 O2 Sat by Pulse 96 Oximetry Constitutional: no acute distress (sedated), other (middle aged unkempt looking CM, normocephalic and atraumatic) Eyes: non-icteric ENT: oropharynx moist, other (ETT 23-24 cm [place]) Neck: supple, no lymphadenopathy, no JVD, other (no thyromegaly) Effort: mildly labored Ascultation: Bilateral: diminished breath sounds, rhonchi (scant) Percussion: Bilateral: not dull Cardiovascular: regular rate and rhythm, other (No R/M) Gastrointestinal: normoactive bowel sounds, soft, non-tender, non-distended, other (No HSM) Integumentary: other (poor turgor) Extremities: no cyanosis, no edema, pink and warm, pulses normal Neurologic: non-focal exam (grossly), CN II-XII normal, motor strength normal and Psychiatric: other (sedated) CBC and BMP: 11/28/17 04:53 11/28/17 04:53 ABG, PT/INR, D-dimer: ABG POC ABG pH 7.405 (7.35-7.45) 11/28/17 06:22 POC ABG pCO2 45.7 (35-45) H 11/28/17 06:22 POC ABG pO2 72 (80-105) L 11/28/17 06:22 POC ABG HCO3 28.6 11/28/17 06:22 POC ABG Total CO2 30 11/28/17 06:22 POC ABG O2 Sat 94 11/28/17 06:22 Abnormal lab findings: Abnormal Labs 11/26/17 11/26/17 11/26/17 05:27 05:37 05:37 WBC RBC Hct MCV MCH MCHC RDW Lymph % (Auto) [place] % (Auto) Lymph # [place] # Seg Neutrophils % Seg Neutrophils # POC ABG pH POC ABG pCO2 POC ABG pO2 Sodium Potassium Chloride Carbon Dioxide BUN Creatinine Glucose Lactic Acid Calcium AST ALT Lactate Dehydrogenase Total Creatine Kinase Urine WBC (Auto) 12.0 H Salicylates < 0.3 L Acetaminophen < 5.0 L 11/26/17 11/26/17 11/26/17 05:37 05:37 05:37 WBC 16.1 H RBC Hct MCV 96 H MCH 35 H MCHC 36 H RDW 12.5 L Lymph % (Auto) 4.2 L [place] % (Auto) 15.9 H Lymph # 0.7 L [place] # 2.6 H Seg Neutrophils % 79.8 H Seg Neutrophils # 12.8 H POC ABG pH POC ABG pCO2 POC ABG pO2 Sodium 128 L Potassium Chloride 84.3 L Carbon Dioxide 19 L BUN 22 H Creatinine Glucose 119 H Lactic Acid Calcium AST 169 H ALT 68 H Lactate Dehydrogenase 343 H Total Creatine Kinase Urine WBC (Auto) Salicylates Acetaminophen 11/26/17 11/26/17 11/26/17 06:44 06:44 11:15 WBC RBC Hct MCV MCH MCHC RDW Lymph % (Auto) [place] % (Auto) Lymph # [place] # Seg Neutrophils % Seg Neutrophils # POC ABG pH 7.338 L POC ABG pCO2 50.5 H POC ABG pO2 487 H Sodium Potassium Chloride Carbon Dioxide BUN Creatinine Glucose Lactic Acid 4.20 H* Calcium AST ALT Lactate Dehydrogenase Total Creatine Kinase 3278 H Urine WBC (Auto) Salicylates Acetaminophen 11/27/17 11/27/17 11/28/17 05:26 18:03 04:53 WBC RBC 3.44 L Hct 34.4 L D MCV 100 H MCH 35 H MCHC 35 H RDW 13.1 L Lymph % (Auto) 11.7 L [place] % (Auto) 10.7 H Lymph # 1.1 L [place] # 1.0 H Seg Neutrophils % 77.2 H Seg Neutrophils # POC ABG pH POC ABG pCO2 47.6 H POC ABG pO2 107 H Sodium Potassium Chloride Carbon Dioxide BUN Creatinine Glucose Lactic Acid Calcium AST ALT Lactate Dehydrogenase Total Creatine Kinase Urine WBC (Auto) 13.0 H Salicylates Acetaminophen 11/28/17 11/28/17 04:53 06:22 WBC RBC Hct MCV MCH MCHC RDW Lymph % (Auto) [place] % (Auto) Lymph # [place] # Seg Neutrophils % Seg Neutrophils # POC ABG pH POC ABG pCO2 45.7 H POC ABG pO2 72 L Sodium Potassium 3.2 L D Chloride 95.4 L Carbon Dioxide BUN 6 L Creatinine 0.6 L D Glucose 65 L Lactic Acid Calcium 7.7 L D AST ALT Lactate Dehydrogenase Total Creatine Kinase Urine WBC (Auto) Salicylates Acetaminophen Chest x-ray: image reviewed (mild hypoventilation with vascular crowding; ETT in good position) Allied health notes reviewed: nursing
[2017-11-28] MEDS: KCL 10MEQ/100ML 10 MEQ/100 ML BAG IV SCH ×4 (11:30→16:47)
[2017-11-28] MEDS: LOVENOX SUB-Q SCH (12:55)
[2017-11-28] MEDS: KEPPRA PO SCH ×2 (12:55→23:07)
[2017-11-28] MEDS ORDERED: POTASSIUM CHLORIDE FEEDTUBE ONE (13:00)
--- NOTE | 2017-11-28 15:29 | Progress Note ---
Subjective - Reason for Consult Consult date: 11/28/17 Reason for consult: Psychiatry Follow-up - Chief Complaint Chief complaint: '"The patient is intubated" 52-year-old white male presenting lethargic to the ER. Psychiatry was consulted to see patient for overdose. Per the record, the patient ingested an unknown amount of dog medication for ticks and fleas. Today the patient is intubated. Mental Status Exam - Vital signs Last Vital Signs Temp 99.4 F 11/28/17 11:33 Pulse 85 11/28/17 13:09 Resp 16 11/28/17 11:45 BP 104/53 11/28/17 13:09 Pulse Ox 99 11/28/17 13:09 - Exam Narrative exam: Unable to complete the MSE because of the patient's condition. Assessment and Plan Impression: The patient is intubated. Recommendation/Plan: Psychiatry sign off. Reconsult psy once the patient is extubated.
[2017-11-28] MEDS: DIPRIVAN 10 MG/ML 1,000 MG/100 ML BOTTLE IV SCH (16:46)
[2017-11-28] MEDS ORDERED: PROVENTIL IH PRN (17:01)
[2017-11-28] MEDS: SODIUM CHLORIDE FLUSH SYRINGE 10 ML IV SCH ×2 (23:10→23:14)
--- NOTE | 2017-11-29 02:34 | XRay Report ---
FINAL REPORT EXAM: XR CHEST 1V AP HISTORY: follow up respiratory failure TECHNIQUE: Single AP portable radiograph of the chest was obtained. PRIORS: Several prior radiographs, most recent dated 11/27/2017. FINDINGS: Endotracheal tube terminates approximately 4 centimeters proximal to the edgar. Orogastric tube overlies the stomach, the distal side port located 3 cm distal to the gastroesophageal junction. Several overlying monitoring leads are present. There is no lobar consolidation, significant pleural effusion or pneumothorax. Cardiac and mediastinal silhouettes unremarkable. No acute osseous abnormality per IMPRESSION: Endotracheal tube terminates 4 cm proximal to the edgar. No focal consolidation or pleural effusion.
[2017-11-29] MEDS: ZOSYN/NS 4.5GM/100ML 4.5 GM/100 ML VIAL IV SCH (05:16)
[2017-11-29] MEDS: PROTONIX FEEDTUBE SCH (10:00)
[2017-11-29] MEDS: LOVENOX SUB-Q SCH (10:00)
[2017-11-29] MEDS: SODIUM CHLORIDE FLUSH SYRINGE 10 ML IV SCH ×2 (10:00→23:21)
[2017-11-29] MEDS: KEPPRA PO SCH ×2 (10:00→23:20)
--- NOTE | 2017-11-29 11:32 | Progress Note ---
Assessment and Plan Assessment and plan: Acute hypoxemic respiratory failure. Continue mechanical ventilation and wean ventilatory support per protocol. Pulmonary following. Sepsis. Continue IV antibiotics and follow cultures. Toxic metabolic encephalopathy. Continue to treat underlying causes. GI Bleed. Resolved. Etiology likely secondary to trauma. Continue Protonix 40mg BID IV GI consulted ? hx ETOH abuse. CIWA protocol Rhabdomyolysis. Continue IV fluid hydration. Monitor CK levels. Hypokalemia. Replete potassium as needed. Suicidal ideation/overdose. Psych evaluation once patient is medically stabilized. Continue 1013. Poison control center was consulted on admission. We'll follow with any further recommendations. Seizure disorder. continue antiepileptic therapy as clinically indicated, Pt not taking Vimpat as outpatient. DVT prophylaxis. Continue SCDs. History Interval history: 52 YO Male with ETOH Abuse, HTN, Seizure disorder, Nicotine Dependence presents to ED for evaluation. As per family, the patient ingested and unknown quantity of canine flea and tick medication in a suspected attempt to take his own life. EMS notified, and upon arrival the patient was found to be confused and in distress. Pt transported to [facility] for further care and evaluation. Pt seen and evaluated in ED and found to be unable to protect his airway secondary to Acute Respiratory Failure. Pt intubated and placed on vent support. Pt also found to have sepsis, rhabdomyolysis, Acidosis, and Hyponatremia. Patient remains intubated on mechanical ventilation. Hospitalist Physical - Constitutional Vitals: Temp Pulse Resp BP Pulse Ox 101.1 F H 107 H 12 120/74 99 11/29/17 09:00 11/29/17 09:45 11/29/17 09:45 11/29/17 09:45 11/29/17 09:45 General appearance: Present: no acute distress - EENT Eyes: Present: PERRL, EOM intact ENT: hearing intact, clear oral mucosa, dentition normal - Neck Neck: Present: supple, normal ROM - Respiratory Respiratory effort: normal Respiratory: bilateral: CTA - Cardiovascular Rhythm: regular Heart Sounds: Present: S1 & S2. Absent: gallop, rub - Extremities Extremities: no ischemia, No edema, Full ROM - Abdominal General gastrointestinal: soft, non-tender, non-distended, normal bowel sounds - Integumentary Integumentary: Present: clear, warm, dry - Neurologic Neurologic: CNII-XII intact, moves all extremities Results - Labs CBC & Chem 7: 11/28/17 04:53 11/28/17 04:53 Labs: Laboratory Last Values WBC 9.8 K/mm3 (4.5-11.0) 11/28/17 04:53 RBC 3.44 M/mm3 (3.65-5.03) L 11/28/17 04:53 Hgb 11.9 gm/dl (11.8-15.2) 11/28/17 04:53 Hct 34.4 % (35.5-45.6) L D 11/28/17 04:53 MCV 100 fl (84-94) H 11/28/17 04:53 MCH 35 pg (28-32) H 11/28/17 04:53 MCHC 35 % (32-34) H 11/28/17 04:53 RDW 13.1 % (13.2-15.2) L 11/28/17 04:53 Plt Count 229 K/mm3 (140-440) 11/28/17 04:53 Lymph % (Auto) 11.7 % (13.4-35.0) L 11/28/17 04:53 [place] % (Auto) 10.7 % (0.0-7.3) H 11/28/17 04:53 Eos % (Auto) 0.2 % (0.0-4.3) 11/28/17 04:53 Baso % (Auto) 0.2 % (0.0-1.8) 11/28/17 04:53 Lymph # 1.1 K/mm3 (1.2-5.4) L 11/28/17 04:53 [place] # 1.0 K/mm3 (0.0-0.8) H 11/28/17 04:53 Eos # 0.0 K/mm3 (0.0-0.4) 11/28/17 04:53 Baso # 0.0 K/mm3 (0.0-0.1) 11/28/17 04:53 Seg Neutrophils % 77.2 % (40.0-70.0) H 11/28/17 04:53 Seg Neutrophils # 7.6 K/mm3 (1.8-7.7) 11/28/17 04:53 POC ABG pH 7.455 (7.35-7.45) H 11/29/17 10:49 POC ABG pCO2 42.6 (35-45) 11/29/17 10:49 POC ABG pO2 77 (80-105) L 11/29/17 10:49 POC ABG HCO3 29.9 11/29/17 10:49 POC ABG Total CO2 31 11/29/17 10:49 POC ABG O2 Sat 96 11/29/17 10:49 POC ABG Base Excess 6 11/29/17 10:49 FiO2 30 % 11/29/17 10:49 Sodium 140 mmol/L (137-145) D 11/28/17 04:53 Potassium 3.2 mmol/L (3.6-5.0) L D 11/28/17 04:53 Chloride 95.4 mmol/L (98-107) L 11/28/17 04:53 Carbon Dioxide 28 mmol/L (22-30) D 11/28/17 04:53 Anion Gap 20 mmol/L 11/28/17 04:53 BUN 6 mg/dL (9-20) L 11/28/17 04:53 Creatinine 0.6 mg/dL (0.8-1.5) L D 11/28/17 04:53 Estimated GFR > 60 ml/min 11/28/17 04:53 BUN/Creatinine Ratio 10 % 11/28/17 04:53 Glucose 65 mg/dL (75-100) L 11/28/17 04:53 POC Glucose 101 (70-105) 11/26/17 05:08 Lactic Acid 1.60 mmol/L (0.7-2.0) 11/26/17 20:25 Calcium 7.7 mg/dL (8.4-10.2) L D 11/28/17 04:53 Magnesium 2.00 mg/dL (1.7-2.3) 11/26/17 06:44 Total Bilirubin 1.10 mg/dL (0.1-1.2) 11/26/17 05:37 AST 169 units/L (5-40) H 11/26/17 05:37 ALT 68 units/L (7-56) H 11/26/17 05:37 Alkaline Phosphatase 89 units/L (35-129) 11/26/17 05:37 Lactate Dehydrogenase 343 units/L (91-180) H 11/26/17 05:37 Total Creatine Kinase 3278 units/L (55-170) H 11/26/17 06:44 Troponin T < 0.010 ng/mL (0.00-0.029) 11/26/17 11:29 C-Reactive Protein 22.10 mg/dL (0.00-1.30) H 11/28/17 15:16 Total Protein 7.1 g/dL (6.3-8.2) 11/26/17 05:37 Albumin 4.7 g/dL (3.9-5) 11/26/17 05:37 Albumin/Globulin Ratio 2.0 % 11/26/17 05:37 Urine Color Yellow (Yellow) 11/27/17 18:03 Urine Turbidity Slightly-cloudy (Clear) 11/27/17 18:03 Urine pH 5.0 (5.0-7.0) 11/27/17 18:03 Ur Specific [place] 1.019 (1.003-1.030) 11/27/17 18:03 Urine Protein 30 mg/dl mg/dL (Negative) 11/27/17 18:03 Urine Glucose (UA) Neg mg/dL (Negative) 11/27/17 18:03 Urine Ketones 20 mg/dL (Negative) 11/27/17 18:03 Urine Blood Sm (Negative) 11/27/17 18:03 Urine Nitrite Neg (Negative) 11/27/17 18:03 Urine Bilirubin Neg (Negative) 11/27/17 18:03 Urine Urobilinogen < 2.0 mg/dL (<2.0) 11/27/17 18:03 Ur Leukocyte Esterase Sm (Negative) 11/27/17 18:03 Urine WBC (Auto) 13.0 /HPF (0.0-6.0) H 11/27/17 18:03 Urine RBC (Auto) 15.0 /HPF (0.0-6.0) 11/27/17 18:03 U Epithel Cells (Auto) 1.0 /HPF (0-13.0) 11/26/17 05:27 Urine Bacteria (Auto) 1+ /HPF (Negative) 11/27/17 18:03 Hyaline Casts 5 /LPF 11/26/17 05:27 Urine Mucus Few /HPF 11/27/17 18:03 Salicylates < 0.3 mg/dL (2.8-20.0) L 11/26/17 05:37 Urine Opiates Screen Presumptive negative 11/26/17 05:27 Urine Methadone Screen Presumptive negative 11/26/17 05:27 Acetaminophen < 5.0 ug/mL (10.0-30.0) L 11/26/17 05:37 Ur Barbiturates Screen Presumptive negative 11/26/17 05:27 Ur Phencyclidine Scrn Presumptive negative 11/26/17 05:27 Ur Amphetamines Screen Presumptive negative 11/26/17 05:27 U Benzodiazepines Scrn Presumptive negative 11/26/17 05:27 Urine Cocaine Screen Presumptive negative 11/26/17 05:27 U Marijuana (THC) Screen Presumptive negative 11/26/17 05:27 Drugs of Abuse Note Disclamer 11/26/17 05:27 Plasma/Serum Alcohol < 0.01 % (0-0.07) 11/26/17 05:37
--- NOTE | 2017-11-29 13:40 | Progress Note ---
Assessment and Plan Acute hypoxemic/hypercapnic respiratory failure Respiratory failure Acute encephalopathy( toxic, metabolic, possible medication withdrawal, alcohol) Sepsis Rhabdomyolysis Hyponatremia syndrome Overdose Possible GIB ETOH abuse disorder Tobacco abuse disorder h/o Back pain with chronic narcotic use - extubate - continue seroquel to 250 mg BID but start taper post extubation - continue keppra for seizures as home meds not available - replaced potassium - continue DVT prophylaxis - reduced set rate to 12/min - continue prn albuterol - continue empiric AB's X 5-7 days (CRP 20) - VAP bundle addressed - Critical care bundles addressed - Nutrition consult placed, hold off on any enteric feeding in view of possible GI bleeding - Neurology consult placed - continue Agitation/Analgesia management - continue GI prophylaxis - continue Glycemic control with SSI - continue CIWA protocol - follow psych consult - continue Delirium prevention measures - maintenance of sleep wake cycle - resume SATs and SBTs in the morning - continue Nicotine withdrawal precautions - continue other care per attending / other consultants The high probability of a clinically significant, sudden or life threatening deterioration of the [neurology, pulmonary, ] system(s) required my full and direct attention, intervention and personal management. The aggregate critical care time was [35] minutes. This time is in addition to time spent performing reported procedures but includes the following: [x] Data Review and interpretation [x] Patient assessment and monitoring of vital signs [x] Documentation [x] Medication orders and management Subjective Date of service: 11/29/17 Principal diagnosis: Acute Hypercapnic Hypoxemic Resp Failure; Sepsis; Acute Encephalopathy Interval history: Patient is seen today for: Acute Hypercapnic Hypoxemic Resp Failure; Sepsis; Acute Encephalopathy Seen and examined at bedside; 24hour events reviewed; nursing and respiratory care staff consulted; no adverse overnight events reported to me; remains on MVS ; tolerating SBT very well; calm; following commands; No N/V/F/C Objective Vital Signs - 12hr 11/29/17 11/29/17 11/29/17 01:45 02:00 02:15 Temperature Pulse Rate 99 H 100 H 101 H Pulse Rate [ Right Radial] Respiratory 14 13 13 Rate Blood Pressure 131/80 117/67 123/72 O2 Sat by Pulse 100 100 100 Oximetry 11/29/17 11/29/17 11/29/17 02:30 02:45 03:00 Temperature Pulse Rate 96 H 98 H 98 H Pulse Rate [ Right Radial] Respiratory 12 15 11 L Rate Blood Pressure 125/69 123/71 125/76 O2 Sat by Pulse 100 100 100 Oximetry 11/29/17 11/29/17 11/29/17 03:15 03:27 03:30 Temperature 99.7 F H Pulse Rate 98 H 101 H Pulse Rate [ Right Radial] Respiratory 11 L 14 Rate Blood Pressure 124/72 119/75 O2 Sat by Pulse 100 100 Oximetry 11/29/17 11/29/17 11/29/17 03:45 04:00 04:15 Temperature Pulse Rate 101 H 99 H 96 H Pulse Rate [ Right Radial] Respiratory 12 13 14 Rate Blood Pressure 118/69 118/69 115/70 O2 Sat by Pulse 100 100 100 Oximetry 11/29/17 11/29/17 11/29/17 04:30 04:45 05:00 Temperature Pulse Rate 98 H 97 H 98 H Pulse Rate [ Right Radial] Respiratory 13 14 13 Rate Blood Pressure 112/67 116/70 124/72 O2 Sat by Pulse 100 99 99 Oximetry 11/29/17 11/29/17 11/29/17 05:15 05:30 05:45 Temperature Pulse Rate 98 H 100 H 99 H Pulse Rate [ Right Radial] Respiratory 11 L 14 12 Rate Blood Pressure 123/71 123/68 114/69 O2 Sat by Pulse 100 98 99 Oximetry 11/29/17 11/29/17 11/29/17 06:00 06:15 06:30 Temperature Pulse Rate 99 H 100 H 97 H Pulse Rate [ Right Radial] Respiratory 15 12 12 Rate Blood Pressure 113/69 116/67 105/64 O2 Sat by Pulse 100 99 99 Oximetry 11/29/17 11/29/17 11/29/17 06:45 07:00 07:15 Temperature Pulse Rate 95 H 95 H 94 H Pulse Rate [ Right Radial] Respiratory 12 13 11 L Rate Blood Pressure 111/67 109/64 119/69 O2 Sat by Pulse 100 99 99 Oximetry 11/29/17 11/29/17 11/29/17 07:30 07:45 07:49 Temperature Pulse Rate 93 H 92 H 102 H Pulse Rate [ Right Radial] Respiratory 12 13 Rate Blood Pressure 111/68 121/67 121/67 O2 Sat by Pulse 100 100 98 Oximetry 11/29/17 11/29/17 11/29/17 08:00 08:15 08:30 Temperature Pulse Rate 111 H 112 H 100 H Pulse Rate [ 101 H Right Radial] Respiratory 14 12 14 Rate Blood Pressure 134/76 121/68 119/71 O2 Sat by Pulse 97 99 98 Oximetry 11/29/17 11/29/17 11/29/17 08:45 09:00 09:15 Temperature 101.1 F H Pulse Rate 111 H 100 H 98 H Pulse Rate [ Right Radial] Respiratory 13 13 12 Rate Blood Pressure 120/62 120/62 116/59 O2 Sat by Pulse 99 98 98 Oximetry 11/29/17 11/29/17 11/29/17 09:30 09:45 12:00 Temperature Pulse Rate 96 H 107 H 105 H Pulse Rate [ Right Radial] Respiratory 12 12 16 Rate Blood Pressure 114/66 120/74 127/75 O2 Sat by Pulse 98 99 98 Oximetry 11/29/17 13:02 Temperature 99.1 F Pulse Rate Pulse Rate [ Right Radial] Respiratory Rate Blood Pressure O2 Sat by Pulse Oximetry Constitutional: no acute distress (sedated), other (middle aged unkempt looking CM, normocephalic and atraumatic) Eyes: non-icteric ENT: oropharynx moist, other (ETT 23-24 cm AINSLEY) Neck: supple, no lymphadenopathy, no JVD, other (no thyromegaly) Effort: mildly labored Ascultation: Bilateral: diminished breath sounds, rhonchi (scant) Percussion: Bilateral: not dull Cardiovascular: regular rate and rhythm, other (No R/M) Gastrointestinal: normoactive bowel sounds, soft, non-tender, non-distended, other (No HSM) Integumentary: other (poor turgor) Extremities: no cyanosis, no edema, pink and warm, pulses normal Neurologic: non-focal exam (grossly), CN II-XII normal, motor strength normal and Psychiatric: other (sedated) CBC and BMP: 11/28/17 04:53 11/28/17 04:53 ABG, PT/INR, D-dimer: ABG POC ABG pH 7.455 (7.35-7.45) H 11/29/17 10:49 POC ABG pCO2 42.6 (35-45) 11/29/17 10:49 POC ABG pO2 77 (80-105) L 11/29/17 10:49 POC ABG HCO3 29.9 11/29/17 10:49 POC ABG Total CO2 31 11/29/17 10:49 POC ABG O2 Sat 96 11/29/17 10:49 Abnormal lab findings: Abnormal Labs 11/26/17 11/26/17 11/26/17 05:27 05:37 05:37 WBC RBC Hct MCV MCH MCHC RDW Lymph % (Auto) [place] % (Auto) Lymph # [place] # Seg Neutrophils % Seg Neutrophils # POC ABG pH POC ABG pCO2 POC ABG pO2 Sodium Potassium Chloride Carbon Dioxide BUN Creatinine Glucose Lactic Acid Calcium AST ALT Lactate Dehydrogenase Total Creatine Kinase C-Reactive Protein Urine WBC (Auto) 12.0 H Salicylates < 0.3 L Acetaminophen < 5.0 L 11/26/17 11/26/17 11/26/17 05:37 05:37 05:37 WBC 16.1 H RBC Hct MCV 96 H MCH 35 H MCHC 36 H RDW 12.5 L Lymph % (Auto) 4.2 L [place] % (Auto) 15.9 H Lymph # 0.7 L [place] # 2.6 H Seg Neutrophils % 79.8 H Seg Neutrophils # 12.8 H POC ABG pH POC ABG pCO2 POC ABG pO2 Sodium 128 L Potassium Chloride 84.3 L Carbon Dioxide 19 L BUN 22 H Creatinine Glucose 119 H Lactic Acid Calcium AST 169 H ALT 68 H Lactate Dehydrogenase 343 H Total Creatine Kinase C-Reactive Protein Urine WBC (Auto) Salicylates Acetaminophen 11/26/17 11/26/17 11/26/17 06:44 06:44 11:15 WBC RBC Hct MCV MCH MCHC RDW Lymph % (Auto) [place] % (Auto) Lymph # [place] # Seg Neutrophils % Seg Neutrophils # POC ABG pH 7.338 L POC ABG pCO2 50.5 H POC ABG pO2 487 H Sodium Potassium Chloride Carbon Dioxide BUN Creatinine Glucose Lactic Acid 4.20 H* Calcium AST ALT Lactate Dehydrogenase Total Creatine Kinase 3278 H C-Reactive Protein Urine WBC (Auto) Salicylates Acetaminophen 11/27/17 11/27/17 11/28/17 05:26 18:03 04:53 WBC RBC 3.44 L Hct 34.4 L D MCV 100 H MCH 35 H MCHC 35 H RDW 13.1 L Lymph % (Auto) 11.7 L [place] % (Auto) 10.7 H Lymph # 1.1 L [place] # 1.0 H Seg Neutrophils % 77.2 H Seg Neutrophils # POC ABG pH POC ABG pCO2 47.6 H POC ABG pO2 107 H Sodium Potassium Chloride Carbon Dioxide BUN Creatinine Glucose Lactic Acid Calcium AST ALT Lactate Dehydrogenase Total Creatine Kinase C-Reactive Protein Urine WBC (Auto) 13.0 H Salicylates Acetaminophen 11/28/17 11/28/17 11/28/17 04:53 06:22 15:16 WBC RBC Hct MCV MCH MCHC RDW Lymph % (Auto) [place] % (Auto) Lymph # [place] # Seg Neutrophils % Seg Neutrophils # POC ABG pH POC ABG pCO2 45.7 H POC ABG pO2 72 L Sodium Potassium 3.2 L D Chloride 95.4 L Carbon Dioxide BUN 6 L Creatinine 0.6 L D Glucose 65 L Lactic Acid Calcium 7.7 L D AST ALT Lactate Dehydrogenase Total Creatine Kinase C-Reactive Protein 22.10 H Urine WBC (Auto) Salicylates Acetaminophen 11/29/17 11/29/17 04:31 10:49 WBC RBC Hct MCV MCH MCHC RDW Lymph % (Auto) [place] % (Auto) Lymph # [place] # Seg Neutrophils % Seg Neutrophils # POC ABG pH 7.451 H 7.455 H POC ABG pCO2 46.9 H POC ABG pO2 131 H 77 L Sodium Potassium Chloride Carbon Dioxide BUN Creatinine Glucose Lactic Acid Calcium AST ALT Lactate Dehydrogenase Total Creatine Kinase C-Reactive Protein Urine WBC (Auto) Salicylates Acetaminophen Chest x-ray: image reviewed (No new infiltrate) Allied health notes reviewed: nursing
[2017-11-29] MEDS: HCTZ PO SCH (14:20)
[2017-11-29] MEDS: XANAX PO SCH (14:21)
[2017-11-29] MEDS: LEVAQUIN 750MG/150ML 750 MG/150 ML BAG IV SCH (14:22)
[2017-11-29] MEDS: ZESTRIL PO SCH (14:22)
[2017-11-29] MEDS: FLEXERIL PO SCH ×2 (14:22→23:21)
--- NOTE | 2017-11-29 22:17 | Consultation ---
HISTORY OF PRESENT ILLNESS: This is a 52-year-old white male that was seen in the Emergency Room for consultation primarily medication issue question. 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 The records obtained during the entire month of October does not indicate that he had any refills nor were there any contacts in the office. He has been given samples in the past of Vimpat 100 mg to be taken once daily for seizures, but in a discussion with his , Nazia Martinez, inspection of the patient's room where he stays indicates he is not taking either Vimpat at all. It is not apparent if he took any medication at all prescribed by me for at least the past month and a half. My records do not indicate he had requested any refills and he would have gotten his last refill of medication approximately over 1-1/2 half months ago. What is not altogether clear is ", apparently complaining of being dizzy, not acting like himself. His Nazia Alvarado went to see him, he was talking somewhat randomly and slightly incoherent, but this was not too unusual given his background history of having a traumatic head injury and traumatic spinal injury. When he was brought to the Emergency Room, Nazia Alvarado had inspection of his room and found a bottle of flea and tick capsules that she thinks he may have taken, although I cannot confirm this. This was suspected. He, on my examination, was fentanyl and propofol. Therefore, a detailed neurological examination could not be performed. Could not obtain past history from him since he was intubated. I did not observe him having any seizure activity. What is interesting is that on max doses of propofol and fentanyl, the dystonia musculorum deformans was completely gone. He was not having any spinal contractions or spinal dystonia. 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 RECOMMENDATION: At this point, ventilatory assistance is obtained, drug levels of potentially a medication for flea and tick capsules that may have an anticholinergic and/or some other mechanism of action, which should be looked up with Poison Control agency. I do not have anything in my records in the past that he would have attempted an overdose. There is no history of alcohol abuse or recent other illicit drug use examining my records. I will be in contact with his Nazia Alvarado, and at this point, from reviewing my drug history, I do not find any additional medications he has been taking on a very detailed printout of his pharmacy use. JOB# [id number] CONNIE/KRISTIN
[2017-11-30] MEDS: XANAX PO SCH ×5 (00:54→20:27)
[2017-11-30] MEDS: FLEXERIL PO SCH ×4 (09:12→20:27)
[2017-11-30] MEDS: LEVAQUIN 750MG/150ML 750 MG/150 ML BAG IV SCH (10:13)
[2017-11-30] MEDS: ZESTRIL PO SCH (10:14)
[2017-11-30] MEDS: KEPPRA PO SCH ×2 (10:14→21:36)
[2017-11-30] MEDS: PROTONIX FEEDTUBE SCH (10:16)
[2017-11-30] MEDS: LOVENOX SUB-Q SCH (10:20)
[2017-11-30] MEDS: SODIUM CHLORIDE FLUSH SYRINGE 10 ML IV SCH (10:28)
[2017-11-30] MEDS: HCTZ PO SCH (10:28)
--- NOTE | 2017-11-30 11:43 | Progress Note ---
Assessment and Plan Assessment and plan: Acute hypoxemic respiratory failure. Resolved Sepsis. Resolving. Continue IV antibiotics and follow cultures. Toxic metabolic encephalopathy. Resolved. GI Bleed. Resolved. Etiology likely secondary to trauma. Continue Protonix 40mg BID IV GI consulted ? hx ETOH abuse. CIWA protocol Rhabdomyolysis. Continue IV fluid hydration. Monitor CK levels. Hypokalemia. Replete potassium as needed. Suicidal ideation/overdose. Await Psych evaluation. Continue 1013. Seizure disorder. continue antiepileptic therapy as clinically indicated, Pt not taking Vimpat as outpatient. DVT prophylaxis. Continue SCDs. History Interval history: 52 YO Male with ETOH Abuse, HTN, Seizure disorder, Nicotine Dependence presents to ED for evaluation. As per family, the patient ingested and unknown quantity of canine flea and tick medication in a suspected attempt to take his own life. EMS notified, and upon arrival the patient was found to be confused and in distress. Pt transported to [facility] for further care and evaluation. Pt seen and evaluated in ED and found to be unable to protect his airway secondary to Acute Respiratory Failure. Pt intubated and placed on vent support. Pt also found to have sepsis, rhabdomyolysis, Acidosis, and Hyponatremia. Extubated doing well transferred to floor Hospitalist Physical - Constitutional Vitals: Temp Pulse Resp BP Pulse Ox 99.0 F 89 18 119/79 95 11/30/17 05:03 11/30/17 10:14 11/30/17 05:03 11/30/17 10:14 11/30/17 05:03 General appearance: Present: no acute distress - EENT Eyes: Present: PERRL, EOM intact ENT: hearing intact, clear oral mucosa, dentition normal - Neck Neck: Present: supple, normal ROM - Respiratory Respiratory effort: normal Respiratory: bilateral: CTA - Cardiovascular Rhythm: regular Heart Sounds: Present: S1 & S2. Absent: gallop, rub - Extremities Extremities: no ischemia, No edema, Full ROM - Abdominal General gastrointestinal: soft, non-tender, non-distended, normal bowel sounds - Integumentary Integumentary: Present: clear, warm, dry - Neurologic Neurologic: CNII-XII intact, moves all extremities Results - Labs CBC & Chem 7: 11/28/17 04:53 11/28/17 04:53 Labs: Laboratory Last Values WBC 9.8 K/mm3 (4.5-11.0) 11/28/17 04:53 RBC 3.44 M/mm3 (3.65-5.03) L 11/28/17 04:53 Hgb 11.9 gm/dl (11.8-15.2) 11/28/17 04:53 Hct 34.4 % (35.5-45.6) L D 11/28/17 04:53 MCV 100 fl (84-94) H 11/28/17 04:53 MCH 35 pg (28-32) H 11/28/17 04:53 MCHC 35 % (32-34) H 11/28/17 04:53 RDW 13.1 % (13.2-15.2) L 11/28/17 04:53 Plt Count 229 K/mm3 (140-440) 11/28/17 04:53 Lymph % (Auto) 11.7 % (13.4-35.0) L 11/28/17 04:53 [place] % (Auto) 10.7 % (0.0-7.3) H 11/28/17 04:53 Eos % (Auto) 0.2 % (0.0-4.3) 11/28/17 04:53 Baso % (Auto) 0.2 % (0.0-1.8) 11/28/17 04:53 Lymph # 1.1 K/mm3 (1.2-5.4) L 11/28/17 04:53 [place] # 1.0 K/mm3 (0.0-0.8) H 11/28/17 04:53 Eos # 0.0 K/mm3 (0.0-0.4) 11/28/17 04:53 Baso # 0.0 K/mm3 (0.0-0.1) 11/28/17 04:53 Seg Neutrophils % 77.2 % (40.0-70.0) H 11/28/17 04:53 Seg Neutrophils # 7.6 K/mm3 (1.8-7.7) 11/28/17 04:53 POC ABG pH 7.455 (7.35-7.45) H 11/29/17 10:49 POC ABG pCO2 42.6 (35-45) 11/29/17 10:49 POC ABG pO2 77 (80-105) L 11/29/17 10:49 POC ABG HCO3 29.9 11/29/17 10:49 POC ABG Total CO2 31 11/29/17 10:49 POC ABG O2 Sat 96 11/29/17 10:49 POC ABG Base Excess 6 11/29/17 10:49 FiO2 30 % 11/29/17 10:49 Sodium 140 mmol/L (137-145) D 11/28/17 04:53 Potassium 3.2 mmol/L (3.6-5.0) L D 11/28/17 04:53 Chloride 95.4 mmol/L (98-107) L 11/28/17 04:53 Carbon Dioxide 28 mmol/L (22-30) D 11/28/17 04:53 Anion Gap 20 mmol/L 11/28/17 04:53 BUN 6 mg/dL (9-20) L 11/28/17 04:53 Creatinine 0.6 mg/dL (0.8-1.5) L D 11/28/17 04:53 Estimated GFR > 60 ml/min 11/28/17 04:53 BUN/Creatinine Ratio 10 % 11/28/17 04:53 Glucose 65 mg/dL (75-100) L 11/28/17 04:53 POC Glucose 101 (70-105) 11/26/17 05:08 Lactic Acid 1.60 mmol/L (0.7-2.0) 11/26/17 20:25 Calcium 7.7 mg/dL (8.4-10.2) L D 11/28/17 04:53 Magnesium 2.00 mg/dL (1.7-2.3) 11/26/17 06:44 Total Bilirubin 1.10 mg/dL (0.1-1.2) 11/26/17 05:37 AST 169 units/L (5-40) H 11/26/17 05:37 ALT 68 units/L (7-56) H 11/26/17 05:37 Alkaline Phosphatase 89 units/L (35-129) 11/26/17 05:37 Lactate Dehydrogenase 343 units/L (91-180) H 11/26/17 05:37 Total Creatine Kinase 3278 units/L (55-170) H 11/26/17 06:44 Troponin T < 0.010 ng/mL (0.00-0.029) 11/26/17 11:29 C-Reactive Protein 22.10 mg/dL (0.00-1.30) H 11/28/17 15:16 Total Protein 7.1 g/dL (6.3-8.2) 11/26/17 05:37 Albumin 4.7 g/dL (3.9-5) 11/26/17 05:37 Albumin/Globulin Ratio 2.0 % 11/26/17 05:37 Urine Color Yellow (Yellow) 11/27/17 18:03 Urine Turbidity Slightly-cloudy (Clear) 11/27/17 18:03 Urine pH 5.0 (5.0-7.0) 11/27/17 18:03 Ur Specific [place] 1.019 (1.003-1.030) 11/27/17 18:03 Urine Protein 30 mg/dl mg/dL (Negative) 11/27/17 18:03 Urine Glucose (UA) Neg mg/dL (Negative) 11/27/17 18:03 Urine Ketones 20 mg/dL (Negative) 11/27/17 18:03 Urine Blood Sm (Negative) 11/27/17 18:03 Urine Nitrite Neg (Negative) 11/27/17 18:03 Urine Bilirubin Neg (Negative) 11/27/17 18:03 Urine Urobilinogen < 2.0 mg/dL (<2.0) 11/27/17 18:03 Ur Leukocyte Esterase Sm (Negative) 11/27/17 18:03 Urine WBC (Auto) 13.0 /HPF (0.0-6.0) H 11/27/17 18:03 Urine RBC (Auto) 15.0 /HPF (0.0-6.0) 11/27/17 18:03 U Epithel Cells (Auto) 1.0 /HPF (0-13.0) 11/26/17 05:27 Urine Bacteria (Auto) 1+ /HPF (Negative) 11/27/17 18:03 Hyaline Casts 5 /LPF 11/26/17 05:27 Urine Mucus Few /HPF 11/27/17 18:03 Salicylates < 0.3 mg/dL (2.8-20.0) L 11/26/17 05:37 Urine Opiates Screen Presumptive negative 11/26/17 05:27 Urine Methadone Screen Presumptive negative 11/26/17 05:27 Acetaminophen < 5.0 ug/mL (10.0-30.0) L 11/26/17 05:37 Ur Barbiturates Screen Presumptive negative 11/26/17 05:27 Ur Phencyclidine Scrn Presumptive negative 11/26/17 05:27 Ur Amphetamines Screen Presumptive negative 11/26/17 05:27 U Benzodiazepines Scrn Presumptive negative 11/26/17 05:27 Urine Cocaine Screen Presumptive negative 11/26/17 05:27 U Marijuana (THC) Screen Presumptive negative 11/26/17 05:27 Drugs of Abuse Note Disclamer 11/26/17 05:27 Plasma/Serum Alcohol < 0.01 % (0-0.07) 11/26/17 05:37
--- NOTE | 2017-11-30 14:48 | Progress Note ---
Assessment and Plan Acute hypoxemic/hypercapnic respiratory failure Respiratory failure Acute encephalopathy( toxic, metabolic, possible medication withdrawal, alcohol) Sepsis Rhabdomyolysis Hyponatremia syndrome Overdose Possible GIB ETOH abuse disorder Tobacco abuse disorder h/o Back pain with chronic narcotic use - extubated - taper seroquel to 150 mg bid - continue keppra for seizures as home meds not available - continue DVT prophylaxis - continue prn albuterol - complete empiric AB's X 5-7 days (CRP 20) - Neurology evaluation ongoing - continue GI prophylaxis - continue Glycemic control with SSI - continue CIWA protocol - follow psych consult - continue Delirium prevention measures - continue Nicotine withdrawal precautions - continue other care per attending / other consultants Subjective Date of service: 11/30/17 Principal diagnosis: Acute Hypercapnic Hypoxemic Resp Failure; Sepsis; Acute Encephalopathy Interval history: Patient is seen today for: Acute Hypercapnic Hypoxemic Resp Failure; Sepsis; Acute Encephalopathy Seen and examined at bedside; 24hour events reviewed; nursing and respiratory care staff consulted; no adverse overnight events reported to me; no new issues respiratory-huber Objective Vital Signs - 12hr 11/30/17 11/30/17 11/30/17 05:03 10:00 10:14 Temperature 99.0 F Pulse Rate 101 H 89 89 Respiratory 18 Rate Blood Pressure 121/82 119/79 O2 Sat by Pulse 95 Oximetry Constitutional: no acute distress (sedated), other (middle aged unkempt looking CM, normocephalic and atraumatic) Eyes: non-icteric ENT: oropharynx moist, other (extubated) Neck: supple, no lymphadenopathy, no JVD, other (no thyromegaly) Effort: mildly labored Ascultation: Bilateral: diminished breath sounds, rhonchi (scant) Percussion: Bilateral: not dull Cardiovascular: regular rate and rhythm, other (No R/M) Gastrointestinal: normoactive bowel sounds, soft, non-tender, non-distended, other (No HSM) Integumentary: other (poor turgor) Extremities: no cyanosis, no edema, pink and warm, pulses normal Neurologic: non-focal exam (grossly), CN II-XII normal, motor strength normal and Psychiatric: other (sedated) CBC and BMP: 11/28/17 04:53 11/28/17 04:53 ABG, PT/INR, D-dimer: ABG POC ABG pH 7.455 (7.35-7.45) H 11/29/17 10:49 POC ABG pCO2 42.6 (35-45) 11/29/17 10:49 POC ABG pO2 77 (80-105) L 11/29/17 10:49 POC ABG HCO3 29.9 11/29/17 10:49 POC ABG Total CO2 31 11/29/17 10:49 POC ABG O2 Sat 96 11/29/17 10:49 Abnormal lab findings: Abnormal Labs 11/26/17 11/26/17 11/26/17 05:27 05:37 05:37 WBC RBC Hct MCV MCH MCHC RDW Lymph % (Auto) [place] % (Auto) Lymph # [place] # Seg Neutrophils % Seg Neutrophils # POC ABG pH POC ABG pCO2 POC ABG pO2 Sodium Potassium Chloride Carbon Dioxide BUN Creatinine Glucose Lactic Acid Calcium AST ALT Lactate Dehydrogenase Total Creatine Kinase C-Reactive Protein Urine WBC (Auto) 12.0 H Salicylates < 0.3 L Acetaminophen < 5.0 L 11/26/17 11/26/17 11/26/17 05:37 05:37 05:37 WBC 16.1 H RBC Hct MCV 96 H MCH 35 H MCHC 36 H RDW 12.5 L Lymph % (Auto) 4.2 L [place] % (Auto) 15.9 H Lymph # 0.7 L [place] # 2.6 H Seg Neutrophils % 79.8 H Seg Neutrophils # 12.8 H POC ABG pH POC ABG pCO2 POC ABG pO2 Sodium 128 L Potassium Chloride 84.3 L Carbon Dioxide 19 L BUN 22 H Creatinine Glucose 119 H Lactic Acid Calcium AST 169 H ALT 68 H Lactate Dehydrogenase 343 H Total Creatine Kinase C-Reactive Protein Urine WBC (Auto) Salicylates Acetaminophen 11/26/17 11/26/17 11/26/17 06:44 06:44 11:15 WBC RBC Hct MCV MCH MCHC RDW Lymph % (Auto) [place] % (Auto) Lymph # [place] # Seg Neutrophils % Seg Neutrophils # POC ABG pH 7.338 L POC ABG pCO2 50.5 H POC ABG pO2 487 H Sodium Potassium Chloride Carbon Dioxide BUN Creatinine Glucose Lactic Acid 4.20 H* Calcium AST ALT Lactate Dehydrogenase Total Creatine Kinase 3278 H C-Reactive Protein Urine WBC (Auto) Salicylates Acetaminophen 0911/27/17 11/28/17 05:26 18:03 04:53 WBC RBC 3.44 L Hct 34.4 L D MCV 100 H MCH 35 H MCHC 35 H RDW 13.1 L Lymph % (Auto) 11.7 L [place] % (Auto) 10.7 H Lymph # 1.1 L [place] # 1.0 H Seg Neutrophils % 77.2 H Seg Neutrophils # POC ABG pH POC ABG pCO2 47.6 H POC ABG pO2 107 H Sodium Potassium Chloride Carbon Dioxide BUN Creatinine Glucose Lactic Acid Calcium AST ALT Lactate Dehydrogenase Total Creatine Kinase C-Reactive Protein Urine WBC (Auto) 13.0 H Salicylates Acetaminophen 11/28/17 11/28/17 11/28/17 04:53 06:22 15:16 WBC RBC Hct MCV MCH MCHC RDW Lymph % (Auto) [place] % (Auto) Lymph # [place] # Seg Neutrophils % Seg Neutrophils # POC ABG pH POC ABG pCO2 45.7 H POC ABG pO2 72 L Sodium Potassium 3.2 L D Chloride 95.4 L Carbon Dioxide BUN 6 L Creatinine 0.6 L D Glucose 65 L Lactic Acid Calcium 7.7 L D AST ALT Lactate Dehydrogenase Total Creatine Kinase C-Reactive Protein 22.10 H Urine WBC (Auto) Salicylates Acetaminophen 11/29/17 11/29/17 04:31 10:49 WBC RBC Hct MCV MCH MCHC RDW Lymph % (Auto) [place] % (Auto) Lymph # [place] # Seg Neutrophils % Seg Neutrophils # POC ABG pH 7.451 H 7.455 H POC ABG pCO2 46.9 H POC ABG pO2 131 H 77 L Sodium Potassium Chloride Carbon Dioxide BUN Creatinine Glucose Lactic Acid Calcium AST ALT Lactate Dehydrogenase Total Creatine Kinase C-Reactive Protein Urine WBC (Auto) Salicylates Acetaminophen Allied health notes reviewed: nursing
[2017-12-01] MEDS: HCTZ PO SCH (09:19)
[2017-12-01] MEDS: FLEXERIL PO SCH ×3 (09:19→20:57)
[2017-12-01] MEDS: XANAX PO SCH ×3 (09:20→20:56)
[2017-12-01] MEDS: ZESTRIL PO SCH (09:21)
[2017-12-01] MEDS: LOVENOX SUB-Q SCH (09:21)
[2017-12-01] MEDS: KEPPRA PO SCH ×2 (09:21→21:01)
[2017-12-01] MEDS: LEVAQUIN 750MG/150ML 750 MG/150 ML BAG IV SCH (09:22)
[2017-12-01] MEDS: PROTONIX FEEDTUBE SCH (09:29)
[2017-12-01] MEDS: SODIUM CHLORIDE FLUSH SYRINGE 10 ML IV SCH ×3 (10:16→21:01)
--- NOTE | 2017-12-01 13:49 | Consultation ---
HISTORY OF PRESENT ILLNESS: A 52-year-old male seen on followup in room 359. The patient is seen following extubation. At this point, he is mentally clear, alert, and does remember the incident in which he took flea and tick tablets. He said that they were in an Advil container. He did not mean to take them intentionally. This was not a suicide attempt and he is aware of the basis of his neurotoxin. I did discuss with him further avoidance of anticholinergics in the future, such as fumigators, other flea and tick sprays, handling dog or cat collars, etc. 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 When he was on max doses of Diprivan and fentanyl, there was complete relaxation of his neck and spinal musculature, and at this point, the contractions have returned to his neck and spinal cord. My interpretation of this is that this clearly establishes that the pattern of muscle movement is not embellished or exaggerated a form of manipulation or malingering as may have been suggested by some persons he has been in contact with. He states that he is concerned about his future placement and I did mention to him that I have spoken with his , Nazia Martinez, and he has a daughter who lives locally, who will provide aid and assistance. Mentally, he seems quite clear at this point. He has a great deal of pain across his shoulders and neck. The patient on an outpatient basis was supposed to be started on Austedo for dystonia and we are checking to see if he ever actually got a dose of this. At this point, the specialty pharmacy will have to be contacted to see if some was ever delivered. I suspect none, however. The patient was provided counseling and support in terms of discharge planning. JOB# [id number] CONNIE/KRISTIN
--- NOTE | 2017-12-01 15:58 | Progress Note ---
Assessment and Plan - Patient Problems (1) Overdose Current Visit: Yes Status: Acute Qualifiers: Encounter type: initial encounter Injury intent: undetermined intent Qualified Code(s): T50.904A - Poisoning by unspecified drugs, medicaments and biological substances, undetermined, initial encounter Plan to address problem: Patient with overdose suicide attempt continue 1013 patient cleared for inpatient treatment. Medically clear for inpatient treatment. (2) Respiratory failure Current Visit: Yes Status: Acute Qualifiers: Chronicity: acute Respiratory failure complication: hypoxia Qualified Code(s): J96.01 - Acute respiratory failure with hypoxia Plan to address problem: Resolved. Patient breathing well not requiring oxygen. (3) Sepsis Current Visit: Yes Status: Acute Qualifiers: Sepsis type: sepsis due to unspecified organism Qualified Code(s): A41.9 - Sepsis, unspecified organism Plan to address problem: Resolved. That is post IV antibiotics. (4) ETOH abuse Current Visit: Yes Status: Chronic Plan to address problem: CIWA protocol affected. No evidence of withdrawal at this time. (5) Seizure Current Visit: No Status: Acute Plan to address problem: Present no active seizure will continue Kera. (6) Tobacco abuse Current Visit: No Status: Chronic Subjective Date of service: 12/01/17 Principal diagnosis: Acute Hypercapnic Hypoxemic Resp Failure; Sepsis; Acute Encephalopathy Interval history: Patient without any new concerns today. Patient appears to be much more alert. Sitter states patient is much more vocal today. Objective - Constitutional Vitals: Vital Signs - 12hr 12/01/17 12/01/17 12/01/17 08:44 09:29 11:45 Temperature 99.0 F 98.7 F Pulse Rate 102 H 102 H Respiratory 16 18 18 Rate Blood Pressure 113/81 106/70 O2 Sat by Pulse 96 95 Oximetry General appearance: Present: no acute distress, well-nourished - EENT Eyes: PERRL, EOM intact ENT: hearing intact, clear oral mucosa Ears: bilateral: normal - Neck Neck: supple, normal ROM - Respiratory Respiratory effort: normal Respiratory: bilateral: CTA - Breasts Breasts: normal - Cardiovascular Rhythm: regular Heart Sounds: Present: S1 & S2. Absent: gallop, rub Extremities: pulses intact, No edema, normal color, Full ROM - Gastrointestinal General gastrointestinal: Present: soft, non-tender, non-distended, normal bowel sounds - Genitourinary Male genitourinary: normal - Integumentary Integumentary: clear, warm, dry - Musculoskeletal Musculoskeletal: 1, strength equal bilaterally - Neurologic Neurologic: moves all extremities - Psychiatric Psychiatric: memory intact, appropriate mood/affect, intact judgment & insight - Labs CBC & Chem 7: 11/28/17 04:53 11/28/17 04:53
[2017-12-01] MEDS ORDERED: TYLENOL PO PRN (22:12)
[2017-12-02] MEDS: HCTZ PO SCH (09:17)
[2017-12-02] MEDS: KEPPRA PO SCH ×2 (09:17→23:05)
[2017-12-02] MEDS: ZESTRIL PO SCH (09:17)
[2017-12-02] MEDS: LOVENOX SUB-Q SCH (09:20)
[2017-12-02] MEDS: XANAX PO SCH ×3 (09:20→20:29)
[2017-12-02] MEDS: PROTONIX FEEDTUBE SCH (09:20)
[2017-12-02] MEDS: LEVAQUIN 750MG/150ML 750 MG/150 ML BAG IV SCH (09:20)
[2017-12-02] MEDS: FLEXERIL PO SCH ×3 (09:20→20:29)
[2017-12-02] MEDS: SODIUM CHLORIDE FLUSH SYRINGE 10 ML IV SCH ×2 (09:48→23:05)
--- NOTE | 2017-12-02 12:30 | Progress Note ---
Assessment and Plan - Patient Problems (1) Overdose Current Visit: Yes Status: Acute Qualifiers: Encounter type: initial encounter Injury intent: undetermined intent Qualified Code(s): T50.904A - Poisoning by unspecified drugs, medicaments and biological substances, undetermined, initial encounter Plan to address problem: Patient with overdose suicide attempt continue 1013 patient cleared for inpatient treatment. Medically clear for inpatient treatment. Patient is being cleared for inpatient psych treatment again. (2) Respiratory failure Current Visit: Yes Status: Acute Qualifiers: Chronicity: acute Respiratory failure complication: hypoxia Qualified Code(s): J96.01 - Acute respiratory failure with hypoxia Plan to address problem: Resolved. Patient breathing well not requiring oxygen. (3) Sepsis Current Visit: Yes Status: Acute Qualifiers: Sepsis type: sepsis due to unspecified organism Qualified Code(s): A41.9 - Sepsis, unspecified organism Plan to address problem: Resolved. That is post IV antibiotics. (4) ETOH abuse Current Visit: Yes Status: Chronic Plan to address problem: CIWA protocol affected. No evidence of withdrawal at this time. (5) Seizure Current Visit: No Status: Acute Plan to address problem: Present no active seizure will continue Keppra. (6) Tobacco abuse Current Visit: No Status: Chronic History Interval history: Patient able to talk to me today. Understandable. Eating yogurt. Not agitated today. Hospitalist Physical - Constitutional Vitals: Temp Pulse Resp BP Pulse Ox 97.6 F 96 H 18 102/53 95 12/02/17 12:15 12/02/17 12:15 12/02/17 12:15 12/02/17 12:15 12/02/17 12:15 General appearance: Present: no acute distress, well-nourished - EENT Eyes: Present: PERRL, EOM intact ENT: hearing intact, clear oral mucosa, dentition normal - Neck Neck: Present: supple, normal ROM - Respiratory Respiratory: bilateral: CTA - Cardiovascular Rhythm: regular Heart Sounds: Present: S1 & S2 - Extremities Extremities: no ischemia, pulses intact, pulses symmetrical, No edema, normal temperature, normal color - Abdominal General gastrointestinal: soft, non-tender, non-distended, normal bowel sounds, splenomegaly - Psychiatric Psychiatric: appropriate mood/affect, agitated, other (poor judgment and mood is appropriate at this time.) - Neurologic Neurologic: CNII-XII intact, moves all extremities Results - Labs CBC & Chem 7: 11/28/17 04:53 11/28/17 04:53 Labs: Laboratory Last Values WBC 9.8 K/mm3 (4.5-11.0) 11/28/17 04:53 RBC 3.44 M/mm3 (3.65-5.03) L 11/28/17 04:53 Hgb 11.9 gm/dl (11.8-15.2) 11/28/17 04:53 Hct 34.4 % (35.5-45.6) L D 11/28/17 04:53 MCV 100 fl (84-94) H 11/28/17 04:53 MCH 35 pg (28-32) H 11/28/17 04:53 MCHC 35 % (32-34) H 11/28/17 04:53 RDW 13.1 % (13.2-15.2) L 11/28/17 04:53 Plt Count 229 K/mm3 (140-440) 11/28/17 04:53 Lymph % (Auto) 11.7 % (13.4-35.0) L 11/28/17 04:53 [place] % (Auto) 10.7 % (0.0-7.3) H 11/28/17 04:53 Eos % (Auto) 0.2 % (0.0-4.3) 11/28/17 04:53 Baso % (Auto) 0.2 % (0.0-1.8) 11/28/17 04:53 Lymph # 1.1 K/mm3 (1.2-5.4) L 11/28/17 04:53 [place] # 1.0 K/mm3 (0.0-0.8) H 11/28/17 04:53 Eos # 0.0 K/mm3 (0.0-0.4) 11/28/17 04:53 Baso # 0.0 K/mm3 (0.0-0.1) 11/28/17 04:53 Seg Neutrophils % 77.2 % (40.0-70.0) H 11/28/17 04:53 Seg Neutrophils # 7.6 K/mm3 (1.8-7.7) 11/28/17 04:53 POC ABG pH 7.455 (7.35-7.45) H 11/29/17 10:49 POC ABG pCO2 42.6 (35-45) 11/29/17 10:49 POC ABG pO2 77 (80-105) L 11/29/17 10:49 POC ABG HCO3 29.9 11/29/17 10:49 POC ABG Total CO2 31 11/29/17 10:49 POC ABG O2 Sat 96 11/29/17 10:49 POC ABG Base Excess 6 11/29/17 10:49 FiO2 30 % 11/29/17 10:49 Sodium 140 mmol/L (137-145) D 11/28/17 04:53 Potassium 3.2 mmol/L (3.6-5.0) L D 11/28/17 04:53 Chloride 95.4 mmol/L (98-107) L 11/28/17 04:53 Carbon Dioxide 28 mmol/L (22-30) D 11/28/17 04:53 Anion Gap 20 mmol/L 11/28/17 04:53 BUN 6 mg/dL (9-20) L 11/28/17 04:53 Creatinine 0.6 mg/dL (0.8-1.5) L D 11/28/17 04:53 Estimated GFR > 60 ml/min 11/28/17 04:53 BUN/Creatinine Ratio 10 % 11/28/17 04:53 Glucose 65 mg/dL (75-100) L 11/28/17 04:53 POC Glucose 101 (70-105) 11/26/17 05:08 Lactic Acid 1.60 mmol/L (0.7-2.0) 11/26/17 20:25 Calcium 7.7 mg/dL (8.4-10.2) L D 11/28/17 04:53 Magnesium 2.00 mg/dL (1.7-2.3) 11/26/17 06:44 Total Bilirubin 1.10 mg/dL (0.1-1.2) 11/26/17 05:37 AST 169 units/L (5-40) H 11/26/17 05:37 ALT 68 units/L (7-56) H 11/26/17 05:37 Alkaline Phosphatase 89 units/L (35-129) 11/26/17 05:37 Lactate Dehydrogenase 343 units/L (91-180) H 11/26/17 05:37 Total Creatine Kinase 3278 units/L (55-170) H 11/26/17 06:44 Troponin T < 0.010 ng/mL (0.00-0.029) 11/26/17 11:29 C-Reactive Protein 22.10 mg/dL (0.00-1.30) H 11/28/17 15:16 Total Protein 7.1 g/dL (6.3-8.2) 11/26/17 05:37 Albumin 4.7 g/dL (3.9-5) 11/26/17 05:37 Albumin/Globulin Ratio 2.0 % 11/26/17 05:37 Urine Color Yellow (Yellow) 11/27/17 18:03 Urine Turbidity Slightly-cloudy (Clear) 11/27/17 18:03 Urine pH 5.0 (5.0-7.0) 11/27/17 18:03 Ur Specific [place] 1.019 (1.003-1.030) 11/27/17 18:03 Urine Protein 30 mg/dl mg/dL (Negative) 11/27/17 18:03 Urine Glucose (UA) Neg mg/dL (Negative) 11/27/17 18:03 Urine Ketones 20 mg/dL (Negative) 11/27/17 18:03 Urine Blood Sm (Negative) 11/27/17 18:03 Urine Nitrite Neg (Negative) 11/27/17 18:03 Urine Bilirubin Neg (Negative) 11/27/17 18:03 Urine Urobilinogen < 2.0 mg/dL (<2.0) 11/27/17 18:03 Ur Leukocyte Esterase Sm (Negative) 11/27/17 18:03 Urine WBC (Auto) 13.0 /HPF (0.0-6.0) H 11/27/17 18:03 Urine RBC (Auto) 15.0 /HPF (0.0-6.0) 11/27/17 18:03 U Epithel Cells (Auto) 1.0 /HPF (0-13.0) 11/26/17 05:27 Urine Bacteria (Auto) 1+ /HPF (Negative) 11/27/17 18:03 Hyaline Casts 5 /LPF 11/26/17 05:27 Urine Mucus Few /HPF 11/27/17 18:03 Salicylates < 0.3 mg/dL (2.8-20.0) L 11/26/17 05:37 Urine Opiates Screen Presumptive negative 11/26/17 05:27 Urine Methadone Screen Presumptive negative 11/26/17 05:27 Acetaminophen < 5.0 ug/mL (10.0-30.0) L 11/26/17 05:37 Ur Barbiturates Screen Presumptive negative 11/26/17 05:27 Ur Phencyclidine Scrn Presumptive negative 11/26/17 05:27 Ur Amphetamines Screen Presumptive negative 11/26/17 05:27 U Benzodiazepines Scrn Presumptive negative 11/26/17 05:27 Urine Cocaine Screen Presumptive negative 11/26/17 05:27 U Marijuana (THC) Screen Presumptive negative 11/26/17 05:27 Drugs of Abuse Note Disclamer 11/26/17 05:27 Plasma/Serum Alcohol < 0.01 % (0-0.07) 11/26/17 05:37
--- NOTE | 2017-12-02 13:03 | Progress Note ---
Assessment and Plan Acute hypoxemic/hypercapnic respiratory failure Respiratory failure Acute encephalopathy( toxic, metabolic, possible medication withdrawal, alcohol) Sepsis Rhabdomyolysis Hyponatremia syndrome Overdose Possible GIB ETOH abuse disorder Tobacco abuse disorder h/o Back pain with chronic narcotic use - extubated - tapered seroquel to 150 mg bid (will defer to psych at this point) - continue keppra for seizures as home meds not available - continue DVT prophylaxis - continue prn albuterol - complete empiric AB's (can change to p.o.) - Neurology evaluation ongoing - continue GI prophylaxis - continue Glycemic control with SSI - continue CIWA protocol - follow psych consult - continue Delirium prevention measures - continue Nicotine withdrawal precautions - continue other care per attending / other consultants ... will see prn at this point Subjective Date of service: 12/02/17 Principal diagnosis: Acute Hypercapnic Hypoxemic Resp Failure; Sepsis; Acute Encephalopathy Interval history: Patient is seen today for: Acute Hypercapnic Hypoxemic Resp Failure; Sepsis; Acute Encephalopathy Seen and examined at bedside; 24hour events reviewed; nursing and respiratory care staff consulted; no adverse overnight events reported to me; no new issues respiratory-huber and resting peacefully Objective Vital Signs - 12hr 12/02/17 12/02/17 06:00 12:15 Temperature 98.4 F 97.6 F Pulse Rate 79 96 H Respiratory 18 18 Rate Blood Pressure 107/76 Blood Pressure 102/53 [Left] O2 Sat by Pulse 96 95 Oximetry Constitutional: no acute distress (sedated), other (middle aged unkempt looking CM, normocephalic and atraumatic) Eyes: non-icteric ENT: oropharynx moist, other (extubated) Neck: supple, no lymphadenopathy, no JVD, other (no thyromegaly) Effort: mildly labored Ascultation: Bilateral: clear, diminished breath sounds Percussion: Bilateral: not dull Cardiovascular: regular rate and rhythm, other (No R/M) Gastrointestinal: normoactive bowel sounds, soft, non-tender, non-distended, other (No HSM) Integumentary: other (poor turgor) Extremities: no cyanosis, no edema, pink and warm, pulses normal Neurologic: non-focal exam (grossly), CN II-XII normal, motor strength normal and Psychiatric: other (sedated) CBC and BMP: 11/28/17 04:53 09/06/18 04:53 ABG, PT/INR, D-dimer: ABG POC ABG pH 7.455 (7.35-7.45) H 11/29/17 10:49 POC ABG pCO2 42.6 (35-45) 11/29/17 10:49 POC ABG pO2 77 (80-105) L 11/29/17 10:49 POC ABG HCO3 29.9 11/29/17 10:49 POC ABG Total CO2 31 11/29/17 10:49 POC ABG O2 Sat 96 11/29/17 10:49 Abnormal lab findings: Abnormal Labs 11/26/17 11/26/17 11/26/17 05:27 05:37 05:37 WBC RBC Hct MCV MCH MCHC RDW Lymph % (Auto) [place] % (Auto) Lymph # [place] # Seg Neutrophils % Seg Neutrophils # POC ABG pH POC ABG pCO2 POC ABG pO2 Sodium Potassium Chloride Carbon Dioxide BUN Creatinine Glucose Lactic Acid Calcium AST ALT Lactate Dehydrogenase Total Creatine Kinase C-Reactive Protein Urine WBC (Auto) 12.0 H Salicylates < 0.3 L Acetaminophen < 5.0 L 11/26/17 11/26/17 11/26/17 05:37 05:37 05:37 WBC 16.1 H RBC Hct MCV 96 H MCH 35 H MCHC 36 H RDW 12.5 L Lymph % (Auto) 4.2 L [place] % (Auto) 15.9 H Lymph # 0.7 L [place] # 2.6 H Seg Neutrophils % 79.8 H Seg Neutrophils # 12.8 H POC ABG pH POC ABG pCO2 POC ABG pO2 Sodium 128 L Potassium Chloride 84.3 L Carbon Dioxide 19 L BUN 22 H Creatinine Glucose 119 H Lactic Acid Calcium AST 169 H ALT 68 H Lactate Dehydrogenase 343 H Total Creatine Kinase C-Reactive Protein Urine WBC (Auto) Salicylates Acetaminophen 11/26/17 11/26/17 11/26/17 06:44 06:44 11:15 WBC RBC Hct MCV MCH MCHC RDW Lymph % (Auto) [place] % (Auto) Lymph # [place] # Seg Neutrophils % Seg Neutrophils # POC ABG pH 7.338 L POC ABG pCO2 50.5 H POC ABG pO2 487 H Sodium Potassium Chloride Carbon Dioxide BUN Creatinine Glucose Lactic Acid 4.20 H* Calcium AST ALT Lactate Dehydrogenase Total Creatine Kinase 3278 H C-Reactive Protein Urine WBC (Auto) Salicylates Acetaminophen 11/27/17 11/27/17 11/28/17 05:26 18:03 04:53 WBC RBC 3.44 L Hct 34.4 L D MCV 100 H MCH 35 H MCHC 35 H RDW 13.1 L Lymph % (Auto) 11.7 L [place] % (Auto) 10.7 H Lymph # 1.1 L [place] # 1.0 H Seg Neutrophils % 77.2 H Seg Neutrophils # POC ABG pH POC ABG pCO2 47.6 H POC ABG pO2 107 H Sodium Potassium Chloride Carbon Dioxide BUN Creatinine Glucose Lactic Acid Calcium AST ALT Lactate Dehydrogenase Total Creatine Kinase C-Reactive Protein Urine WBC (Auto) 13.0 H Salicylates Acetaminophen 11/28/17 11/28/17 11/28/17 04:53 06:22 15:16 WBC RBC Hct MCV MCH MCHC RDW Lymph % (Auto) [place] % (Auto) Lymph # [place] # Seg Neutrophils % Seg Neutrophils # POC ABG pH POC ABG pCO2 45.7 H POC ABG pO2 72 L Sodium Potassium 3.2 L D Chloride 95.4 L Carbon Dioxide BUN 6 L Creatinine 0.6 L D Glucose 65 L Lactic Acid Calcium 7.7 L D AST ALT Lactate Dehydrogenase Total Creatine Kinase C-Reactive Protein 22.10 H Urine WBC (Auto) Salicylates Acetaminophen 11/29/17 11/29/17 04:31 10:49 WBC RBC Hct MCV MCH MCHC RDW Lymph % (Auto) [place] % (Auto) Lymph # [place] # Seg Neutrophils % Seg Neutrophils # POC ABG pH 7.451 H 7.455 H POC ABG pCO2 46.9 H POC ABG pO2 131 H 77 L Sodium Potassium Chloride Carbon Dioxide BUN Creatinine Glucose Lactic Acid Calcium AST ALT Lactate Dehydrogenase Total Creatine Kinase C-Reactive Protein Urine WBC (Auto) Salicylates Acetaminophen Allied health notes reviewed: nursing
--- NOTE | 2017-12-03 08:09 | Progress Note ---
Assessment and Plan Assessment and plan: 52-year-old male past medical history significant for alcohol abuse, seizure disorder wasn't to the emergency department with an attempted suicide Drug overdose with suicide intent - Resolved - Continue 1013 - Need psych evaluation - Patient is medically cleared for psych inpatient treatment Alcohol abuse - Patient is on CIWA protocol - No signs of withdrawal Respiratory failure - Patient was intubated at presentation - Currently extubated and saturating well on room air DVT prophylaxis - On Lovenox Disposition - Per psychiatry History Interval history: Patient was seen and evaluated this morning, no nursing issues overnight. Denied any suicidal intent. Hospitalist Physical - Physical exam Narrative exam: Not in cardiopulmonary distress. The patient appeared well nourished and normally developed. Vital signs as documented. Head exam is unremarkable. No scleral icterus . Neck is without jugular venous distension, thyromegaly, or carotid bruits. Lungs are clear to auscultation. Cardiac exam reveals regular rate and Rhythm. First and second heart sounds normal. No murmurs, rubs or gallops. Abdominal exam reveals normal bowel sounds, no masses, no organomegaly and no aortic enlargement. Extremities are nonedematous and both femoral and pedal pulses are normal. FOUNDATION DIRECTOR: Alert and oriented 3. No focal weakness. - Constitutional Vitals: Temp Pulse Resp BP Pulse Ox 98.5 F 89 16 127/86 97 12/03/17 05:37 12/03/17 05:37 12/03/17 05:37 12/03/17 05:37 12/03/17 05:37 General appearance: Present: no acute distress, well-nourished Results - Labs CBC & Chem 7: 11/28/17 04:53 12/03/17 16:49 Labs: Laboratory Last Values WBC 9.8 K/mm3 (4.5-11.0) 11/28/17 04:53 RBC 3.44 M/mm3 (3.65-5.03) L 11/28/17 04:53 Hgb 11.9 gm/dl (11.8-15.2) 11/28/17 04:53 Hct 34.4 % (35.5-45.6) L D 11/28/17 04:53 MCV 100 fl (84-94) H 11/28/17 04:53 MCH 35 pg (28-32) H 11/28/17 04:53 MCHC 35 % (32-34) H 11/28/17 04:53 RDW 13.1 % (13.2-15.2) L 11/28/17 04:53 Plt Count 229 K/mm3 (140-440) 11/28/17 04:53 Lymph % (Auto) 11.7 % (13.4-35.0) L 11/28/17 04:53 [place] % (Auto) 10.7 % (0.0-7.3) H 11/28/17 04:53 Eos % (Auto) 0.2 % (0.0-4.3) 11/28/17 04:53 Baso % (Auto) 0.2 % (0.0-1.8) 11/28/17 04:53 Lymph # 1.1 K/mm3 (1.2-5.4) L 11/28/17 04:53 [place] # 1.0 K/mm3 (0.0-0.8) H 11/28/17 04:53 Eos # 0.0 K/mm3 (0.0-0.4) 11/28/17 04:53 Baso # 0.0 K/mm3 (0.0-0.1) 11/28/17 04:53 Seg Neutrophils % 77.2 % (40.0-70.0) H 11/28/17 04:53 Seg Neutrophils # 7.6 K/mm3 (1.8-7.7) 11/28/17 04:53 POC ABG pH 7.455 (7.35-7.45) H 11/29/17 10:49 POC ABG pCO2 42.6 (35-45) 11/29/17 10:49 POC ABG pO2 77 (80-105) L 11/29/17 10:49 POC ABG HCO3 29.9 11/29/17 10:49 POC ABG Total CO2 31 11/29/17 10:49 POC ABG O2 Sat 96 11/29/17 10:49 POC ABG Base Excess 6 11/29/17 10:49 FiO2 30 % 11/29/17 10:49 Sodium 140 mmol/L (137-145) D 11/28/17 04:53 Potassium 3.2 mmol/L (3.6-5.0) L D 11/28/17 04:53 Chloride 95.4 mmol/L (98-107) L 11/28/17 04:53 Carbon Dioxide 28 mmol/L (22-30) D 11/28/17 04:53 Anion Gap 20 mmol/L 11/28/17 04:53 BUN 6 mg/dL (9-20) L 11/28/17 04:53 Creatinine 0.6 mg/dL (0.8-1.5) L D 11/28/17 04:53 Estimated GFR > 60 ml/min 11/28/17 04:53 BUN/Creatinine Ratio 10 % 11/28/17 04:53 Glucose 65 mg/dL (75-100) L 11/28/17 04:53 POC Glucose 101 (70-105) 11/26/17 05:08 Lactic Acid 1.60 mmol/L (0.7-2.0) 11/26/17 20:25 Calcium 7.7 mg/dL (8.4-10.2) L D 11/28/17 04:53 Magnesium 2.00 mg/dL (1.7-2.3) 11/26/17 06:44 Total Bilirubin 1.10 mg/dL (0.1-1.2) 11/26/17 05:37 AST 169 units/L (5-40) H 11/26/17 05:37 ALT 68 units/L (7-56) H 11/26/17 05:37 Alkaline Phosphatase 89 units/L (35-129) 11/26/17 05:37 Lactate Dehydrogenase 343 units/L (91-180) H 11/26/17 05:37 Total Creatine Kinase 3278 units/L (55-170) H 11/26/17 06:44 Troponin T < 0.010 ng/mL (0.00-0.029) 11/26/17 11:29 C-Reactive Protein 22.10 mg/dL (0.00-1.30) H 11/28/17 15:16 Total Protein 7.1 g/dL (6.3-8.2) 11/26/17 05:37 Albumin 4.7 g/dL (3.9-5) 11/26/17 05:37 Albumin/Globulin Ratio 2.0 % 11/26/17 05:37 Urine Color Yellow (Yellow) 11/27/17 18:03 Urine Turbidity Slightly-cloudy (Clear) 11/27/17 18:03 Urine pH 5.0 (5.0-7.0) 11/27/17 18:03 Ur Specific [place] 1.019 (1.003-1.030) 11/27/17 18:03 Urine Protein 30 mg/dl mg/dL (Negative) 11/27/17 18:03 Urine Glucose (UA) Neg mg/dL (Negative) 11/27/17 18:03 Urine Ketones 20 mg/dL (Negative) 11/27/17 18:03 Urine Blood Sm (Negative) 11/27/17 18:03 Urine Nitrite Neg (Negative) 11/27/17 18:03 Urine Bilirubin Neg (Negative) 11/27/17 18:03 Urine Urobilinogen < 2.0 mg/dL (<2.0) 11/27/17 18:03 Ur Leukocyte Esterase Sm (Negative) 11/27/17 18:03 Urine WBC (Auto) 13.0 /HPF (0.0-6.0) H 11/27/17 18:03 Urine RBC (Auto) 15.0 /HPF (0.0-6.0) 11/27/17 18:03 U Epithel Cells (Auto) 1.0 /HPF (0-13.0) 11/26/17 05:27 Urine Bacteria (Auto) 1+ /HPF (Negative) 11/27/17 18:03 Hyaline Casts 5 /LPF 11/26/17 05:27 Urine Mucus Few /HPF 11/27/17 18:03 Salicylates < 0.3 mg/dL (2.8-20.0) L 11/26/17 05:37 Urine Opiates Screen Presumptive negative 11/26/17 05:27 Urine Methadone Screen Presumptive negative 11/26/17 05:27 Acetaminophen < 5.0 ug/mL (10.0-30.0) L 11/26/17 05:37 Ur Barbiturates Screen Presumptive negative 11/26/17 05:27 Ur Phencyclidine Scrn Presumptive negative 11/26/17 05:27 Ur Amphetamines Screen Presumptive negative 11/26/17 05:27 U Benzodiazepines Scrn Presumptive negative 11/26/17 05:27 Urine Cocaine Screen Presumptive negative 11/26/17 05:27 U Marijuana (THC) Screen Presumptive negative 11/26/17 05:27 Drugs of Abuse Note Disclamer 11/26/17 05:27 Plasma/Serum Alcohol < 0.01 % (0-0.07) 11/26/17 05:37
[2017-12-03] MEDS: XANAX PO SCH ×3 (08:33→20:20)
[2017-12-03] MEDS: FLEXERIL PO SCH ×3 (08:33→20:21)
[2017-12-03] MEDS: LOVENOX SUB-Q SCH (11:27)
[2017-12-03] MEDS: KEPPRA PO SCH ×2 (11:27→22:10)
[2017-12-03] MEDS: HCTZ PO SCH (11:28)
[2017-12-03] MEDS: PROTONIX FEEDTUBE SCH (11:28)
[2017-12-03] MEDS: ZESTRIL PO SCH (11:29)
[2017-12-03] MEDS: SODIUM CHLORIDE FLUSH SYRINGE 10 ML IV SCH ×2 (11:30→22:13)
[2017-12-03] MEDS: LEVAQUIN 750MG/150ML 750 MG/150 ML BAG IV SCH (11:31)
--- NOTE | 2017-12-03 12:18 | Progress Note ---
Subjective - Reason for Consult Consult date: 12/03/17 Reason for consult: Psychiatry Follow-up - Chief Complaint Chief complaint: '"I didn't try to kill myself" 52-year-old white male presenting lethargic to the ER. Psychiatry was consulted to see patient for overdose. Per the record, the patient ingested an unknown amount of dog medication for ticks and fleas. Today the patient is calm and cooperative during the assessment. He stated that he took 2 pills that was medication for a dog that was placed in a Ibuprofen bottle. He stated that he took the pills assuming they were Ibuprofen pills. He denies trying to kill himself by overdosing. He denies a previous suicide attempt when asked. He stated a long hx of alcohol abuse since the age of 10. He stated that he drink ( etoh) because he enjoy it. He denies being depressed or having any manic episodes in the past. He stated that Mahi Gutierrez at [phone] can confirm that he wasn't trying to kill himself. He denies SI/HI's and AVH's. Per collateral information gathered by Tawny Farrell, the grant writer, Ms Mahi Gutierrez stated that the patient took flea/tic medication by mistake because the pills were in a Ibuprofen bottle. The patient was experiencing pain at the time. Mental Status Exam - Vital signs Last Vital Signs Temp 98.5 F 12/03/17 05:37 Pulse 89 12/03/17 05:37 Resp 16 12/03/17 05:37 BP 127/86 12/03/17 05:37 Pulse Ox 97 12/03/17 05:37 - Exam Narrative exam: MSE: Appearance: calm, cooperative Behavior: regular eye contact Speech: regular rate and tone Mood: "okay" Affect: congruent to mood Thought Process: logical Thought Content: denies SI/HI's and AVH's Motor Activity: lying in bed Cognition: A/O x 3 Insight: appropriate Judgment: appropriate Assessment and Plan Impression: Hx of Alcohol Abuse. Unintentional overdose. Today the patient is calm and cooperative during the assessment. Recommendation/Plan: Rescind 1013. The patient can follow up at [facility] for rehab services. Discussed the importance to abstain from alcohol consumption (etoh).
--- NOTE | 2017-12-03 16:41 | Discharge Summary ---
Providers - Providers Date of Admission: 11/26/17 11:49 Date of discharge: 12/04/17 Attending physician: PATO PRESTON MD 11/26/17 06:29 Consult to Mental Health [CONS] Urgent Reason For Exam: psych Place consult to:: electronics computer mechanic probation and patrol agent Notified:: awaiting call back 11/26/17 10:18 Consult to Physician [CONS] Urgent Comment: DR DAMICO NOTIFIED 1025 Consulting Provider: KIANA POZO Physician Instructions: Reason For Exam: ams 11/27/17 13:51 Consult to Physician [CONS] Routine Comment: Consulting Provider: ANGE YUNG Physician Instructions: Reason For Exam: GI bleed 12/02/17 11:54 Consult to Mental Health [CONS] Urgent Reason For Exam: psych- this is a reconsult A&O x 3 Place consult to:: MH Notified:: Tawny Phone number called:: [phone] Primary care physician: MEDICAL DELIVERY TECHNICIAN Hospitalization Reason for admission: unintentional drug overdose Condition: Stable Hospital course: 52-year-old male past medical history significant for alcohol abuse, seizure disorder was brought to the emergency department with an attempted suicide Drug overdose ; patient was evaluated by psych and determined that accidental overdose and safe to discharge back to personal home care. Alcohol abuse: Patient is on CIWA protocol but no signs of withdrawal Respiratory failure; Patient was intubated at presentation and extubated next day and patient didn't have any respiratory problems. Disposition: - TO HOME OR SELFCARE Time spent for discharge: 32 minutes - Discharge Diagnoses (1) Overdose Status: Acute Qualifiers: Encounter type: initial encounter Injury intent: undetermined intent Qualified Code(s): T50.904A - Poisoning by unspecified drugs, medicaments and biological substances, undetermined, initial encounter (2) Respiratory failure Status: Acute Qualifiers: Chronicity: acute Respiratory failure complication: hypoxia Qualified Code(s): J96.01 - Acute respiratory failure with hypoxia (3) Rhabdomyolysis Status: Acute Qualifiers: Encounter type: initial encounter (4) ETOH abuse Status: Chronic (5) Leukocytosis Status: Acute (6) Seizure Status: Acute (7) Tobacco abuse Status: Chronic Core Measure Documentation - Palliative Care Palliative Care/ Comfort Measures: Not Applicable - Core Measures Any of the following diagnoses?: none Exam - Physical Exam Narrative exam: Not in cardiopulmonary distress. The patient appeared well nourished and normally developed. Vital signs as documented. Head exam is unremarkable. No scleral icterus . Neck is without jugular venous distension, thyromegaly, or carotid bruits. Lungs are clear to auscultation. Cardiac exam reveals regular rate and Rhythm. First and second heart sounds normal. No murmurs, rubs or gallops. Abdominal exam reveals normal bowel sounds, no masses, no organomegaly and no aortic enlargement. Extremities are nonedematous and both femoral and pedal pulses are normal. COMMERCIAL CRABBER: Alert and oriented 3. No focal weakness. - Constitutional Vitals: Temp Pulse Resp BP Pulse Ox 98.7 F 114 H 20 131/79 94 12/03/17 12:32 12/03/17 12:32 12/03/17 12:32 12/03/17 12:32 12/03/17 12:32 Plan Activity: no restrictions Weight Bearing Status: Full Weight Bearing Diet: regular Follow up with: PRIMARY CAREMD [Primary Care Provider] - 3-5 Days [facility] [Outside] - 7 Days
[2017-12-03 17:49] LABS: BUN/Creatinine Ratio 18; Blood Urea Nitrogen 11 mg/dL (9-20); Calcium 9.5 mg/dL (8.4-10.2); Hemolysis Index 0
--- NOTE | 2017-12-04 00:27 | Consultation ---
HISTORY OF PRESENT ILLNESS: This 52-year-old white male was seen on followup evaluation. In the interval since my prior note, I had the opportunity to speak with his housemate, Mahi, who is a harbor patrol police and reliable source of information. She relates to me that the patient has been drinking heavily for several weeks, consuming at least 8-12 beers per day and she feels that he has problem with chronic alcoholism. He apparently has stopped drinking 2-3 days before the incident where he had a breathing difficulty. It is quite possible based on her description that the estephanie of this problem was delirium tremens. At least the timeline seems appropriate level of alcohol consumption is overall general state of health. Mahi states that when he would drink heavily, he would try to get access to any kind of medication if he gets his hands on and she did not think that was a good situation at the time of discharge for him to have access to any prescription drugs because he is not capable of regulating his medication intake. I mentioned to her that I will be certain to make a note about this and place on the chart so that his potential contact with medication will be limited. JOB# [id number] CONNIE/KRISTIN
[2017-12-04] MEDS: XANAX PO SCH (09:16)
[2017-12-04] MEDS: FLEXERIL PO SCH (09:16)
[2017-12-04] MEDS: ZESTRIL PO SCH (10:48)
[2017-12-04] MEDS: HCTZ PO SCH (10:51)
[2017-12-04] MEDS: KEPPRA PO SCH (10:52)
[2017-12-04] MEDS: LOVENOX SUB-Q SCH (10:52)
[2017-12-04] MEDS: PROTONIX FEEDTUBE SCH (10:53)
[2017-12-04] MEDS: LEVAQUIN 750MG/150ML 750 MG/150 ML BAG IV SCH (10:57)
[2017-12-04] MEDS: SODIUM CHLORIDE FLUSH SYRINGE 10 ML IV SCH (10:57)
[2017-12-04 13:57] VITALS: BP 109/72
== END 2017-12-04 14:40 | disposition home or self-care (01) | DRG 871 ==
LOC: ED 04:33 → EEVIPCON 11:49 → CC1 11:49 → 3A 11-29 19:38
PROVIDERS: ADMIT Internal Medicine; ATTEND Internal Medicine
PROC: 4A033R1 Measurement of Arterial Saturation, Peripheral, Percutaneous Approach (ICD-10-PCS; principal; 2017-11-26)
PROC: 5A1945Z Respiratory Ventilation, 24-96 Consecutive Hours (ICD-10-PCS; 2017-11-26)
PROC: 0BH17EZ Insertion of Endotracheal Airway into Trachea, Via Natural or Artificial Opening (ICD-10-PCS; 2017-11-26)
DX: A41.9 Sepsis, unspecified organism (principal); J96.01 Acute respiratory failure with hypoxia; J96.02 Acute respiratory failure with hypercapnia; G92 Toxic encephalopathy; M62.82 Rhabdomyolysis; E87.1 Hypo-osmolality and hyponatremia; K92.2 Gastrointestinal hemorrhage, unspecified; E66.2 Morbid (severe) obesity with alveolar hypoventilation; T50.902A Poisoning by unspecified drugs, medicaments and biological substances, intentional self-harm, initial encounter; F10.10 Alcohol abuse, uncomplicated; F17.200 Nicotine dependence, unspecified, uncomplicated; G40.909 Epilepsy, unspecified, not intractable, without status epilepticus; E87.6 Hypokalemia; Y92.89 Other specified places as the place of occurrence of the external cause; Z82.49 Family history of ischemic heart disease and other diseases of the circulatory system; Z79.899 Other long term (current) drug therapy; Z68.23 Body mass index [BMI] 23.0-23.9, adult
CPT/HCPCS: 36415; 36600; 70450; 71045; 72125; 74018; 80048; 80053; 80307; 80320; 81001; 82140; 82550; 82803; 82962; 83615; 83735; 84484; 85025; 86140; 87040; 87070; 87205; 90715; 93005; 93010; 94002; 94003; C9113; G0480; J1630; J1650; J1956; J2060; J2543; J2560; J2704; J3010; J3370; J3411; J3480; J7030; J7040

== ENCOUNTER 2020-09-12 13:14 | Outpatient (CLI) | payer MEDICARE ==
--- NOTE | 2020-09-12 14:23 | XRay Report ---
RIGHT HIP 4 VIEWS INDICATION / CLINICAL INFORMATION: DISPLACED INTERTROCHANTERIC FRACTURE OF RIGHT FEMUR. COMPARISON: None available. FINDINGS: ORIF of proximal right femur fracture with an intramedullary nail in place. Mild degenerative changes seen in the right hip joint. No other significant skeletal abnormality Signer Name: Rishabh Pugh MD FACMary Signed: 09/12/2020 2:19 PM Workstation Name: [id number]
== END 2020-09-12 13:15 | disposition home or self-care (01) ==
LOC: XRAY 13:14
PROVIDERS: ATTEND Orthopaedic Surgery
DX: S72.141A Displaced intertrochanteric fracture of right femur, initial encounter for closed fracture (principal); M16.11 Unilateral primary osteoarthritis, right hip; X58.XXXA Exposure to other specified factors, initial encounter; Y93.89 Activity, other specified; Y92.89 Other specified places as the place of occurrence of the external cause; Y99.8 Other external cause status

== ENCOUNTER 2021-06-10 00:44 | Emergency (ER) | payer MEDICARE ==
--- NOTE | 2021-06-10 00:56 | Emergency Department Report ---
ED Animal Bite HPI - General Chief Complaint: Animal Bite Stated Complaint: DOG BITE Time Seen by Provider: 06/10/21 00:45 Source: patient, family Limitations: No Limitations - History of Present Illness Initial Comments: This 56-year-old male was intervening between 2 dogs which he owned. One of his dogs attacked him biting him on his right forearm resulting in exte nsive wound, his left forearm which are minor and his right periorbital area involving the right eyelid. The patient is able to see from his right but does not open it for further examination. The patient states that the vaccination status of the dog that bit him is unknown. He has a history of seizure disorder and alcohol abuse. MD Complaint: animal bite (Dog) -: Sudden (Just prior to arrival) Location: face, other (Bilateral upper extremities) Left: Forearm (Extensive), Right: Forearm Animal: dog Description: household pet Pain Description: sharp Severity scale (0 -10): 10 Context: provoked Associated Symptoms: bleeding, headache Treatments Prior to Arrival: other (None) - Related Data Patient Tetanus UTD: No Home Medications Medication Instructions Recorded Confirmed Last Taken Albuterol Mdi (or & Nicu Only) 2 puff INHALATION Q4H PRN 12/23/13 07/06/20 Unknown [ProAir HFA Inhaler] Lisinopril/Hydrochlorothiazide 1 tab PO DAILY 12/23/13 07/06/20 Unknown [Zestoretic 20-12.5 mg] Previous Rx's Medication Instructions Recorded Last Taken Type Apixaban [Eliquis] 5 mg PO DAILY #30 tablet 07/15/20 Unknown Rx Cyclobenzaprine [Flexeril 10 MG 10 mg PO TID PRN #30 07/15/20 Unknown Rx TAB] levoFLOXacin [Levaquin] 750 mg PO QDAY #4 tablet 07/15/20 Unknown Rx oxyCODONE /ACETAMINOPHEN [Percocet 1 tab PO Q8H PRN #21 tablet 07/15/20 Unknown Rx 5/325 mg] Allergies Allergy/AdvReac Type Severity Reaction Status Date / Time lactose AdvReac Unknown Verified 12/03/17 15:43 ED Review of Systems ROS: Stated complaint: DOG BITE Other details as noted in HPI Comment: All other systems reviewed and negative Skin: other (Lacerations to the right periorbital area also involving the eyelid. There are also lacerations to the right forearm as well as the left forearm with the right being more extensive) Neurological: denies: headache ED Past Medical Hx - Past Medical History Hx Hypertension: Yes Hx Seizures: Yes Additional medical history: chronic neck pain - Surgical History Additional Surgical History: back surgery - Family History Family history: other (Seizure) - Social History Smoking Status: Current Every Day Smoker - Medications Home Medications: Home Medications Medication Instructions Recorded Confirmed Last Taken Type Albuterol Mdi (or & Nicu Only) 2 puff INHALATION Q4H PRN 12/23/13 07/06/20 Unknown History [ProAir HFA Inhaler] Lisinopril/Hydrochlorothiazide 1 tab PO DAILY 12/23/13 07/06/20 Unknown History [Zestoretic 20-12.5 mg] Apixaban [Eliquis] 5 mg PO DAILY #30 tablet 07/15/20 Unknown Rx Cyclobenzaprine [Flexeril 10 MG 10 mg PO TID PRN #30 07/15/20 Unknown Rx TAB] levoFLOXacin [Levaquin] 750 mg PO QDAY #4 tablet 07/15/20 Unknown Rx oxyCODONE /ACETAMINOPHEN [Percocet 1 tab PO Q8H PRN #21 tablet 07/15/20 Unknown Rx 5/325 mg] ED Physical Exam - General Limitations: No Limitations General appearance: alert, in distress (Secondary to pain) - Head Head exam: Present: other (Laceration to the right periorbital area which appears to involve the upper lid) - Eye Eye exam: Present: PERRL (There is no anisocoria. The patient however would not allow a good examination of the eye), EOMI, other (There is a 5 cm laceration to the right periorbital area also involving the right upper lid.) Pupils: Present: normal accommodation - ENT ENT exam: Present: mucous membranes moist - Neck Neck exam: Present: normal inspection - Respiratory Respiratory exam: Present: normal lung sounds bilaterally. Absent: respiratory distress - Cardiovascular Cardiovascular Exam: Present: regular rate, normal rhythm. Absent: systolic murmur, diastolic murmur, rubs, gallop - GI/Abdominal GI/Abdominal exam: Present: soft, normal bowel sounds. Absent: distended, tenderness - Rectal Rectal exam: Present: deferred - Neurological Exam Neurological exam: Present: alert, oriented X3 - Psychiatric Psychiatric exam: Present: normal affect, normal mood - Skin Skin exam: Present: other (There is a laceration to the right forearm which measures 5 x 8 cm and appears to be macerated and is deep enough to involve muscle. Examination distally reveals range of motion however there is pain. There is good distal neuro function as well as vascular. The left forearm is noted to have multi) ED Course Vital Signs 06/10/21 06/10/21 06/10/21 01:04 01:14 02:55 Temperature 97.9 F Pulse Rate 76 92 H Respiratory 16 14 19 Rate Blood Pressure 124/80 Blood Pressure 124/80 150/88 [Left] O2 Sat by Pulse 100 97 Oximetry - Reevaluation(s) Reevaluation #1: 06/10/21 03:09 On arrival an IV was started and the patient was given 2 mg of Dilaudid to help to control his pain. This was followed by another 1mg of Dilaudid in order to allow us to attempt to irrigate his right forearm wound as well as the wound over his right orbit. The patient is not cooperative for good evaluation of the eye however he is able to appreciate objects and light although complaining of some blurring. His tetanus status was updated and he was given 3 g of Unasyn IV. His wounds were dressed with 4 inch saline soaked gauze and wrapped. The patient is to be transferred to [facility] ER to ER with accepting - Consultations Consultation #1: 06/10/21 03:07 I spoke with the [facility] transfer service and the patient was accepted in transfer for further evaluation and treatment Dr. Nagel accepting. Critical care time in (mins) excluding proc time.: 30 Critical care attestation.: If time is entered above; I have spent that time in minutes in the direct care of this critically ill patient, excluding procedure time. ED Disposition Clinical Impression: Open wound of right forearm due to dog bite, Open wound of face due to dog bite, Open wound of left forearm due to dog bite Disposition: 02 [facility]ORT [facility]M [facility] Is pt being admited?: No Does the pt Need Aspirin: No Condition: Stable Referrals: ELAINE YOUSIF MD [Primary Care Provider] - 3-5 Days
[2021-06-10] MEDS ORDERED: AMPICILLIN/SULBACTAM 3 GM in SODIUM CHLORIDE 0.9% 50 ML IV ONE (00:58)
[2021-06-10] MEDS ORDERED: HYDROmorphone 2 MG/1 ML INJ IV ONE (01:02)
[2021-06-10] MEDS ORDERED: SODIUM CHLORIDE 0.9% IRR 500 ML BOTTLE IR ONE (01:50)
[2021-06-10] MEDS ORDERED: SODIUM CHLORIDE 0.9% 500 ML 0 ML ONE (01:52)
[2021-06-10] MEDS ORDERED: SODIUM CHLORIDE IRRI 500 ML 500 ML IR ONE (01:53)
[2021-06-10] MEDS ORDERED: HYDROmorphone 1 MG/1 ML INJ IV ONE (01:53)
[2021-06-10] MEDS ORDERED: TETANUS,DIPHTHERIA TOXOID ADULT 0.5 ML INJ IM ONE (01:57)
[2021-06-10] MEDS ORDERED: AMPICILLIN/SULBACTA 3GM/100ML 3 GM/100 ML BAG IV ONE (02:00)
[2021-06-10 02:56] VITALS: BP 150/88
--- NOTE | 2021-06-10 02:59 | XRay Report ---
RIGHT FOREARM, SINGLE VIEW INDICATION / CLINICAL INFORMATION: Dog bite. COMPARISON: None available. FINDINGS: There is significant soft tissue trauma throughout the proximal and mid aspect of the forearm. Multip le small areas of gas are seen throughout the soft tissues. No fracture of the radius or ulna are identified. It would be difficult to exclude some degree of oss eous involvement from the dog bite based on this single view. IMPRESSION: Prominent soft tissue trauma involving the proximal to mid forearm without definitive oss eous abnormality. Signer Name: Alejandra Mccracken MD Signed: 06/10/2021 2:55 AM Workstation Name: [id number]
== END 2021-06-10 03:37 | disposition short-term general hospital (02) ==
LOC: ED 00:44
DX: S51.852A Open bite of left forearm, initial encounter (principal); S51.851A Open bite of right forearm, initial encounter; S01.85XA Open bite of other part of head, initial encounter; Z91.011 Allergy to milk products; W54.0XXA Bitten by dog, initial encounter; Y93.89 Activity, other specified; Y92.89 Other specified places as the place of occurrence of the external cause; Y99.8 Other external cause status; I10 Essential (primary) hypertension
CPT/HCPCS: 73090; 90471; 90714; 96365; 96375; 96376; 99285; J0295; J1170; J7040